=== PATIENT | female | born 1965 | race Two or more races ===

== ENCOUNTER 2019-12-08 08:47 | Inpatient (IN) ==
[2019-12-08 09:06] VITALS: BMI 34.2
[2019-12-08 09:36] LABS: ABG ALLEN TEST POS; ABG BASE EXCESS 1.3 mmol/L (-2.0-2.0); ABG HCO3 24.9 mmol/L (22-26)
--- NOTE | 2019-12-08 09:36 | DR.EXTPAIN ---
HPI Time seen Time Seen by Provider: 12/08/19 09:31 PCP Primary Care Physician: [place] HPI Comment HPI Comment: PATIENT IS 54YR OLS FEMALE IN ER WITH FEVER, COUGH, CONGESTION, SORE THROAT, BODYACHES TIMES FOUR DAYS. TEMP ELEVATED IN ER AND O2 SAT IS IN 80S IN ER. PATIENT IS WEAK AND NAUSEATED AND HAVE ABDOMINAL CRAMPING. NO DIARRHEA. SEEN IN [facility] IN [place] YESTERDAY. PAIN IS ACHING IN NATURE, 8/10 AND GENERALIZED. WORK IN [employer] THAT [employer]. NO HISTORY OF EXPOSURE TO COVID 19 PATIENT. Complaint/Symptoms Chief Complaint Doctor Comments: INCREASING SOB, COUGH, CONGESTION, SORE THROAT AND BODY ACHES TIMES FOUR DAY. Chief Complaint:: PT STATED SHE HAS BEEN SHORT OF BREATH , COUGHING, THROAT HURTS, AND BODY ACHES. HAS BEEN TO [place] [facility] BUT WAS SENT HOME AND SHE HAS NOT HAD A COVID TEST. COVID-19 Coronavirus risk:travel/contact w/high risk person: Yes Has patient experienced Coronavirus symptoms: Yes Coronavirus symptoms experienced: Fever, Coughing and Shortness of Breath Nurses notes reviewed Nurses Notes Review: Yes Source History Provided: Patient Mode of arrival Mode of Arrival: Ambulatory Timing Onset of Chief Complaint: 12/04/19 Context History of: None Associated signs and symptoms Associated Signs and Symptoms: Weakness, Fever, Abdominal Pain, Cough, Headache, Nausea, Pleuritic Chest Pain and Shortness of Breath PMH PMH Past Medical History: No Past Surgical History: Yes Surgical History: Family History History of Family Medical Conditions: No Social History Does patient currently use any type of tobacco product: No Have you used tobacco products in the last 12 months: No Type of Tobacco Use: None Does any household member use tobacco: No Alcohol Use: None Do you use any recreational Drugs:: No Lives With: Family Lives Where: Home Travel Risk Coronavirus risk:travel/contact w/high risk person: Yes Has patient experienced Coronavirus symptoms: Yes Coronavirus symptoms experienced: Fever, Coughing and Shortness of Breath Infectious screening In the last 2 months have you had wt loss of >10#?: NO Have you had fever, night sweats or hemotysis?: No Have you traveled outside the country in the last 6 months?: No Isolation: Droplet ROS Review of Systems Constitutional: See HPI, Chills, Fever, Malaise, Weakness, Fatigue and Loss of Appetite Eyes: No Symptoms Reported and See HPI; negative Blurred Vision and Diplopia ENTM: See HPI, Nose Discharge, Nose Congestion and Throat Pain; negative Ear Pain Respiratoy: See HPI, Moist Cough and Short of Breath; negative Wheezing Cardiovascular: See HPI and Chest Pain; negative Edema and Palpitations Gastrointestinal/Abdominal: Nausea; negative Abdominal Pain, Constipation, Diarrhea and Vomiting Genitourinary: No Symptoms Reported; negative Dysuria, Frequency and Hematuria Neurological: See HPI, Headache and Weakness; negative Dizziness Musculoskeletal: See HPI and Muscle Pain; negative Back Pain Integumentary: See HPI and Dryness; negative Change in Color, Rash and Juandice Hematologic/Lymphatic: No Symptoms Reported and See HPI; negative Easy Bruising and Swollen Glands Endocrine: See HPI and Decreased Appetite; negative Increased Thirst and Incr eased Urine Psychiatric: No Symptoms Reported and See HPI All Other Systems: Reviewed and Negative PE Vital Signs Vitals: Temperature 101.3 F Pulse Rate 90 Respiratory Rate 16 Blood Pressure 135/61 O2 Sat by Pulse Oximetry 85 General Limitations: No Limitations General Appearance: Alert and In Distress Head Head Exam: Normal Inspection and Atraumatic Eyes Eye exam: Normal Appearance and PERRL; negative Scleral Icterus and Conjunctival Injection ENT ENT Exam: Normal External Ear Exam; negative Normal Oropharynx and TM's Normal Bilaterally Neck Neck Exam: Normal Inspection and Trachea Midline; negative Tenderness and Lymphadenopathy Chest Chest Inspection: Normal Inspection and Symmetric Chest Wall Rise; negative Tenderness Respiratory Respiratory Exam: Respiratory Distress; negative Accessory Muscle Use and Chest Wall Tenderness Respiratory Exam: Bilateral: Rhonchi and Lower: Rhonchi Cardiovascular Cardiovascular Exam: Regular Rate, Normal Rhythm and Normal Heart Sounds; negative Systolic Murmur and Diastolic Murmur Abdominal Exam Abdominal Exam: Normal Inspection, Normal Bowel Sounds and Soft; negative Tenderness Extremities Extremities Exam: Normal Inspection and Normal Capillary Refill; negative Tenderness, Edema and Calf Tenderness Back Back Exam: Normal Inspection; negative (R) CVA Tenderness and (L) CVA Tenderness Neurological Neurological Exam: Alert, Oriented X3 and CN II-XII Intact; negative Motor Sensory Deficit Psychiatric Psychiatric Exam: Normal Affect and Normal Mood Skin Skin Exam: Dry MDM Differential Diagnosis Differential Diagnosis: Other (PNEUMONIA, HYPOXIA, GENERALIZED WEAKNESS, COVID 19 ILLNESS.) COURSE Treatment Treatment: SEE ORDERS. TYLENOL 1GM IVPB AND REEMDESIVIR 200MG IVBP IN ER. Consultation Consultation Comments: DISCUSSED PATIENT WITH DR. SÁNCHEZ. HE WILL ADMIT PATIENT. Education/Counseling Education/Counseling: Patient and Family Educated On: Diagnosis ROR Labs Reviewed Laboratory Results Reviewed?: Yes Result Diagrams: 12/08/19 09:24 12/08/19 09:24 Laboratory: WBC 8.2 X10^3/uL (3.6-10.0) 12/08/19 09:24 RBC 4.74 X10^6/uL (3.5-5.4) 12/08/19 09:24 Hgb 13.8 g/dL (12.0-16.0) 12/08/19 09:24 Hct 41.0 % (36.0-47.0) 12/08/19 09:24 MCV 86.6 fL (80.0-100.0) 12/08/19 09:24 MCH 29.1 pg (27.0-34.0) 12/08/19 09:24 MCHC 33.6 g/dL (33.0-35.0) 12/08/19 09:24 RDW 12.7 % (11.6-16.5) 12/08/19 09:24 Plt Count 242 X10^3/uL (150.0-450.0) 12/08/19 09:24 MPV 8.6 fL (7.4-11.0) 12/08/19 09:24 Neut % (Auto) 81.4 % (42.0-75.0) H 12/08/19 09:24 Lymph % (Auto) 14.3 % (21.0-51.0) L 12/08/19 09:24 [place] % (Auto) 4.1 % (0.0-13.0) 12/08/19 09:24 Eos % (Auto) 0.0 % (0.9-2.9) L 12/08/19 09:24 Baso % (Auto) 0.2 % (0.2-1.0) 12/08/19 09:24 Neut # (Auto) 6.6 x10^3/uL (2.2-4.8) H 12/08/19 09:24 Lymph # (Auto) 1.2 X10^3/uL (1.3-2.9) L 12/08/19 09:24 [place] # (Auto) 0.3 x10^3/uL (0.3-0.8) 12/08/19 09:24 Eos # (Auto) 0.0 x10^3/uL (0.0-0.2) 12/08/19 09:24 Baso # (Auto) 0.0 X10^3/uL (0.0-0.1) 12/08/19 09:24 Absolute Nucleated RBC 0.0 /100WBC 12/08/19 09:24 Sample Site Lr 12/08/19 09:25 ABG pH 7.460 (7.35-7.45) H 12/08/19 09:25 ABG pCO2 35.0 mmHg (35.0-45.0) 12/08/19 09:25 ABG pO2 49.0 mmHg (80.0-100.0) L* 12/08/19 09:25 ABG HCO3 24.9 mmol/L (22-26) 12/08/19 09:25 ABG O2 Saturation 87.0 % (90-100) L 12/08/19 09:25 ABG Base Excess 1.3 mmol/L (-2.0-2.0) 12/08/19 09:25 Mark Test Pos 12/08/19 09:25 A-a Gradient 57.0 mmHg 12/08/19 09:25 FiO2 21.0 12/08/19 09:25 Blood Gas Comments Pt ezekiel well cdn 12/08/19 09:25 Sodium 130 mmol/L (136-145) L 12/08/19 09:24 Corrected Sodium 136 mmol/L (136-145) 12/08/19 09:24 Potassium 3.6 mmol/L (3.5-5.1) 12/08/19 09:24 Chloride 96 mmol/L (98-107) L 12/08/19 09:24 Carbon Dioxide 26.4 mmol/L (21-32) 12/08/19 09:24 BUN 9 mg/dL (7-18) 12/08/19 09:24 Creatinine 0.76 mg/dL (0.55-1.02) 12/08/19 09:24 Est GFR (MDRD) Af Amer > 60 (>60) 12/08/19 09:24 Est GFR (MDRD) Non-Af > 60 (>60) 12/08/19 09:24 Glucose 335 mg/dL (65-99) H 12/08/19 09:24 Lactic Acid 1.3 mmol/L (0.4-2.0) 12/08/19 09:24 Calcium 9.2 mg/dL (8.5-10.1) 12/08/19 09:24 Corrected Calcium 9.9 mg/dL (8.5-10.1) 12/08/19 09:24 Ferritin 436 ng/mL (8-252) H 12/08/19 09:24 Total Bilirubin 0.40 mg/dL (0.2-1.0) 12/08/19 09:24 AST 30 Units/L (15-37) 12/08/19 09:24 ALT 59 Units/L (12-78) 12/08/19 09:24 Alkaline Phosphatase 96 Units/L (46-116) 12/08/19 09:24 Lactate Dehydrogenase 248 Units/L (81-234) H 12/08/19 09:24 Creatine Kinase 68 Units/L (26-192) 12/08/19 09:24 CK-MB (CK-2) < 1.0 ng/mL (0-4.0) 12/08/19 09:24 CK/CKMB % Calc 1.5 % (<4) 12/08/19 09:24 Troponin I < 0.02 ng/mL (0-1.5) 12/08/19 09:24 C-Reactive Protein 169.20 mg/L (0-3.0) H 12/08/19 09:24 Total Protein 8.1 g/dL (6.4-8.2) 12/08/19 09:24 Albumin 3.1 g/dL (3.4-5.0) L 12/08/19 09:24 Globulin 5.0 g/dL (2.5-4.5) H 12/08/19 09:24 Albumin/Globulin Ratio 0.6 Ratio (1.1-2.1) L 12/08/19 09:24 SARS-CoV-2 (PCR) Positive (NEGATIVE) A 12/08/19 11:15 XRAY XRAY Interpreted by: Radiologist (REPORT NOTED AND DISCUSSED WITH PATIENT.) and Self (AGREE WITH RADIOLOGIST.) EKG Rate: 81 [place]: Normal Rhythm: NSR Block: None Hypertrophy: None ST: Nonsp Opioid Opioid Risk Tool Age (Zaki box if 16-45): No History of Preadolescent Sexual Abuse: No Total: 0 Total Score Risk Category: Low Risk Copyright: Slim PERRY predicting aberrant behaviors Diagnosis Discharge Problem: Hypoxia, COVID-19 virus detected, Generalized weakness Pneumonia Qualifiers: Pneumonia type: due to unspecified organism Laterality: bilateral Lung location: lower lobe of lung Qualified Code(s): J18.9 - Pneumonia, unspecified organism Instructions Forms: Excuse From Work Precautions for COVID19 Patient Portal Social Distancing
[2019-12-08 09:45] LABS: BASOPHILS % (AUTO) 0.2 % (0.2-1.0); HEMOGLOBIN 13.8 g/dL (12.0-16.0); LYMPHOCYTES # (AUTO) 1.2 X10^3/uL (1.3-2.9); LYMPHOCYTES % (AUTO) 14.3 % (21.0-51.0); MEAN CORPUSCULAR HEMOGLOBIN 29.1 pg (27.0-34.0); MEAN CORPUSCULAR HGB CONC 33.6 g/dL (33.0-35.0); MEAN CORPUSCULAR VOLUME 86.6 fL (80.0-100.0); MEAN PLATELET VOLUME 8.6 fL (7.4-11.0); MONOCYTES # (AUTO) 0.3 x10^3/uL (0.3-0.8); MONOCYTES % (AUTO) 4.1 % (0.0-13.0); NEUTROPHILS # (AUTO) 6.6 x10^3/uL (2.2-4.8); NEUTROPHILS % (AUTO) 81.4 % (42.0-75.0); PLATELET COUNT 242 X10^3/uL (150.0-450.0); RED BLOOD COUNT 4.74 X10^6/uL (3.5-5.4); RED CELL DISTRIBUTION WIDTH 12.7 % (11.6-16.5); WHITE BLOOD COUNT 8.2 X10^3/uL (3.6-10.0)
[2019-12-08 10:02] LABS: BLOOD UREA NITROGEN 9 mg/dL (7-18); CALCIUM 9.2 mg/dL (8.5-10.1); CARBON DIOXIDE 26.4 mmol/L (21-32); CHLORIDE 96 mmol/L (98-107); COR NA(FOR HYPERGLY) 136 mmol/L (136-145); CREATININE 0.76 mg/dL (0.55-1.02); SODIUM 130 mmol/L (136-145); TROPONIN I < 0.02 ng/mL (0-1.5); eGFR NON BLACK RACES > 60 (>60)
[2019-12-08 10:06] LABS: ALANINE AMINOTRANSFERASE 59 Units/L (12-78); ALBUMIN 3.1 g/dL (3.4-5.0); ALKALINE PHOSPHATASE 96 Units/L (46-116); ASPARTATE AMINO TRANSFERASE 30 Units/L (15-37); CKMB % 1.5 % (<4); COR CA(FOR HYPOALB) 9.9 mg/dL (8.5-10.1); CREATINE KINASE 68 Units/L (26-192); CREATINE KINASE MB < 1.0 ng/mL (0-4.0); TOTAL PROTEIN 8.1 g/dL (6.4-8.2)
[2019-12-08 10:08] LABS: LACTIC ACID 1.3 mmol/L (0.4-2.0)
--- NOTE | 2019-12-08 10:26 | RAD ---
HISTORY:Shortness of breath, cough, sore throat, body achesStudy: Single view chestComparison:NoneFindings:Lung volumes are reduced limiting evaluation. There are bibasilar multifocal lung infiltrates compatible with pneumonia. No pneumothorax or pleural effusion identified. Heart size is normal.IMPRESSION:Bibasilar lung infiltrates compatible with pneumonia.Electronically signed by: SIMA BENTON (Dec 08, 2019 10:25:08)
[2019-12-08] MEDS ORDERED: OFIRMEV IV 1000 MG VIAL 1,000 MG/100 ML VIAL IV ONE ×2 (10:48→11:06)
[2019-12-08] MEDS ORDERED: [UNRECOGNIZED DRUG - REMARK] IV ONE (12:38)
[2019-12-08] MEDS ORDERED: ASCORBIC ACID INJ MULTI-DOSE VIAL IM SCH (12:45)
[2019-12-08 14:23] LABS: SERUM ACETONE NEGATIVE (NEGATIVE)
[2019-12-08 14:34] LABS: HEMOGLOBIN A1C 12.6 %
[2019-12-08] MEDS ORDERED: NS 100 ML IV 100 ML with ASCORBIC ACID INJ MULTI-DOSE VIAL 1,500 MG IV SCH ×2 (15:00)
[2019-12-08] MEDS ORDERED: CORTEF ONE (15:14)
[2019-12-08] MEDS ORDERED: TUSSIONEX PENNKINETIC SUSP PO PRN (15:15)
[2019-12-08] MEDS: CORTEF PO SCH ×2 (15:16→16:11)
[2019-12-08] MEDS ORDERED: NS 1/2 1000 ML IV 1,000 ML IV ONE ×2 (15:19→20:37)
[2019-12-08] MEDS ORDERED: ROBITUSSIN DM ONE (15:19)
[2019-12-08] MEDS ORDERED: LEVAQUIN PREMIX IV 750 MG 750 MG/150 ML BAG IV ONE (15:21)
[2019-12-08] MEDS: NS 1/2 1000 ML IV 1,000 ML IV SCH (15:24)
[2019-12-08] MEDS: ROBITUSSIN DM PO SCH ×3 (15:24→21:08)
[2019-12-08] MEDS ORDERED: DUONEB 0.5 MG/3 MG (3 mL) NEB ONE (15:49)
[2019-12-08] MEDS: DUONEB 0.5 MG/3 MG (3 mL) NEB SCH ×2 (16:20→18:44)
[2019-12-08] MEDS ORDERED: HumuLIN R ONE (16:36)
[2019-12-08] MEDS: HumuLIN R SUBCUT PRN ×2 (16:38→20:51)
[2019-12-08] MEDS: LEVAQUIN PREMIX IV 750 MG 750 MG/150 ML BAG IV SCH (16:38)
[2019-12-08] MEDS ORDERED: KLOR-CON PO PRN (17:07)
[2019-12-08] MEDS ORDERED: K-RIDER 10 MEQ/NS 100 ML 10 MEQ/100 ML BAG IV PRN (17:07)
[2019-12-08] MEDS ORDERED: MICRO K EXTEN CAP 10 MEQ PO PRN (17:07)
[2019-12-08] MEDS ORDERED: POTASSIUM CHL 60 MEQ/NS 0.45% 500 ML IV PRN (17:07)
[2019-12-08] MEDS ORDERED: POTASSIUM CHLORIDE LIQ 20 MEQ UDC PO PRN (17:07)
[2019-12-08] MEDS ORDERED: POTASSIUM CHL 40 MEQ/NS 0.45% 500 ML IV PRN (17:07)
[2019-12-08] MEDS ORDERED: K-DUR TAB 20 MEQ PO ONE (17:13)
[2019-12-08] MEDS: K-DUR TAB 20 MEQ PO PRN (17:31)
[2019-12-08] MEDS ORDERED: ACTEMRA IV ONE (18:00)
[2019-12-08] MEDS ORDERED: NS IV ONE (18:00)
[2019-12-08] MEDS ORDERED: PULMICORT NEB TX 0.5 MG NEB ONE (19:37)
[2019-12-08] MEDS: PULMICORT NEB TX 0.5 MG NEB SCH (20:30)
[2019-12-08] MEDS ORDERED: THIAMINE HCL INJ IM SCH (21:00)
[2019-12-08] MEDS ORDERED: ZINC SULFATE PO SCH (21:00)
[2019-12-08 21:13] LABS: ABG ALLEN TEST POS; ABG BASE EXCESS 2.8 mmol/L (-2.0-2.0); ABG HCO3 27.2 mmol/L (22-26)
[2019-12-09] MEDS: DUONEB 0.5 MG/3 MG (3 mL) NEB SCH ×4 (00:40→18:00)
[2019-12-09] MEDS: NS 1/2 1000 ML IV 1,000 ML IV SCH ×2 (04:56→19:57)
[2019-12-09 05:41] LABS: BASOPHILS % (AUTO) 0.2 % (0.2-1.0); EOSINOPHILS % (AUTO) 0.1 % (0.9-2.9); HEMATOCRIT 36.6 % (36.0-47.0); HEMOGLOBIN 12.4 g/dL (12.0-16.0); LYMPHOCYTES % (AUTO) 30.9 % (21.0-51.0); MEAN CORPUSCULAR HEMOGLOBIN 29.3 pg (27.0-34.0); MEAN CORPUSCULAR HGB CONC 33.8 g/dL (33.0-35.0); MEAN CORPUSCULAR VOLUME 86.7 fL (80.0-100.0); MONOCYTES # (AUTO) 0.5 x10^3/uL (0.3-0.8); MONOCYTES % (AUTO) 7.4 % (0.0-13.0); NEUTROPHILS # (AUTO) 4.1 x10^3/uL (2.2-4.8); NEUTROPHILS % (AUTO) 61.4 % (42.0-75.0); PLATELET COUNT 246 X10^3/uL (150.0-450.0); RED BLOOD COUNT 4.22 X10^6/uL (3.5-5.4); RED CELL DISTRIBUTION WIDTH 12.5 % (11.6-16.5); WHITE BLOOD COUNT 6.6 X10^3/uL (3.6-10.0)
[2019-12-09 06:00] LABS: ALANINE AMINOTRANSFERASE 42 Units/L (12-78); ALBUMIN 2.5 g/dL (3.4-5.0); ALKALINE PHOSPHATASE 80 Units/L (46-116); ASPARTATE AMINO TRANSFERASE 23 Units/L (15-37); BLOOD UREA NITROGEN 7 mg/dL (7-18); CALCIUM 8.6 mg/dL (8.5-10.1); CARBON DIOXIDE 25.2 mmol/L (21-32); CHLORIDE 102 mmol/L (98-107); COR CA(FOR HYPOALB) 9.8 mg/dL (8.5-10.1); COR NA(FOR HYPERGLY) 136 mmol/L (136-145); CREATININE 0.54 mg/dL (0.55-1.02); SODIUM 135 mmol/L (136-145); TOTAL PROTEIN 6.8 g/dL (6.4-8.2); eGFR NON BLACK RACES > 60 (>60)
[2019-12-09 07:14] LABS: ABG ALLEN TEST POS; ABG HCO3 27.1 mmol/L (22-26)
--- NOTE | 2019-12-09 08:09 | RAD ---
HISTORYSHORT OF BREATH, COUGHING,STUDYCHEST, 1 VIEWCOMPARISONChest film December 08, 2019FINDINGSThe trachea is midline. The cardiac silhouette is unremarkable. Lung volumes are low but there are patchy bilateral airspace opacities left greater than right lower lung field without change from yesterday's exam. Findings are consistent with pneumonia. The bony thorax is unremarkable.IMPRESSIONLow lung volumes and stable left greater than right bibasilar infiltrates consistent with pneumonia. There is no pneumothorax or effusion.Electronically signed by: NUNU SAGE (Dec 09, 2019 08:08:03)
[2019-12-09] MEDS ORDERED: ACTEMRA 400 MG in NS 100 ML IV 80 ML IV NR (08:15)
[2019-12-09] MEDS ORDERED: VITAMIN A PO SCH (09:00)
[2019-12-09] MEDS ORDERED: DECADRON INJ IV SCH (09:00)
[2019-12-09] MEDS ORDERED: VITAMIN D (1.25MG) PO SCH (09:00)
[2019-12-09] MEDS ORDERED: VITAMIN D3 125 mcg (5,000 UNITS) PO SCH (09:00)
[2019-12-09] MEDS: REMDESIVIR **DO NOT USE THIS ITEM# ** 100 MG in NS 250 ML IV 250 ML IV SCH (09:24)
[2019-12-09] MEDS: VSL#3 PO SCH (09:24)
[2019-12-09] MEDS: LEVAQUIN PREMIX IV 750 MG 750 MG/150 ML BAG IV SCH (09:24)
[2019-12-09] MEDS: PULMICORT NEB TX 0.5 MG NEB SCH ×2 (09:50→21:23)
--- NOTE | 2019-12-09 10:58 | DR.H&P ---
H&P - History & Physical for Day of: H&P Date: 12/08/19 - Chief Complaint Chief Complaint: FEVER, COUGH, CONGESTION, SORE THROAT, BODY ACHES X 4 DAYS - History of Present Illness History of Present Illness: IS A 54 YEAR OLD FEMALE WHO PRESENTED TO THE ER WITH COMPLAINTS OF FEVER, COUGH, CONGESTION, SORE THROAT, BODY ACHES X 4 DAYS. SHE REPORTS SHE WAS SEEN AT [facility] ONE DAY PRIOR AND WAS SENT HOME. AUSCULTATION OF LUNG BUI REVEALED SCATTERED WHEEZING. ON ARRIVAL TO THE ER, VITALS WERE 101.3-90-16-85%-135/61. LABS WERE OBTAINED. ABNORMAL LAB VALUES INCLUDE THE FOLLOWING: SODIUM 130, CHLORIDE 96, GLUCOSE 335, FERRITIN 436, ALBUMIN 3.1, LACTATE DEHYDROGENASE 248, CRP 169.20. CARDIAC ENZYMES WERE WITHIN NORMAL LIMITS. ACETONE NEGATIVE. COVID-19 POSITIVE. AN ABG WAS OBTAINED AND REVEALED: PH 7.460, PC02 35.0, P02 49, HC03 24.9, 02 SATURATION 87.0, BASE EXCESS 1.3, FI02 21.0. BLOOD CULTURES WERE SET UP. A CHEST XRAY WAS OBTAINED AND REVEALED: BIBASILAR LUNG INFILTRATES COMPATIBLE WITH PNEUMONIA. EKG REVEALED: SINUS RHYTHM WITH HR 81. SHE WAS GIVEN TYLENOL 1000MG IV IN THE ER. TEMPERATURE DECREASED TO 99.3. AFTER BEING PLACED ON THE VENTI- MASK, OXYGEN SATURATIONS INCREASED TO 91%. SHE WAS ADMITTED FOR FURTHER EVALUATION AND TREATMENT OF PNEUMONIA, HYPOXIA, COVID-19, GENERALIZED WEAKNESS. SHE WAS STARTED ON 1/2NS AT 75 ML/HR, REMDESIVIR 200MG IV X 1, THEN 100MG IV DAILY, ACTEMRA 400MG IV X 1 DOSE, LEVAQUIN 750MG IV DAILY, DUONEBS Q6H, PULMICORT BID, ROBITUSSIN 10ML PO QID, TUSSIONEX 5ML PO Q12H PRN COUGH, SOLU- MEDROL 40MG IV Q8H, AND THE POTASSIUM AND MAGNESIUM PROTOCOLS. OTHERWISE, WE PLAN TO FOLLOW UP WITH AM LABS, ABG, AND CHEST XRAY AND CONTINUE TO MONITOR. - Past Medical History Past Medical History: Diabetes - Past Surgical History Surgical History: - Social History Does patient currently use any type of tobacco product: No Have you used tobacco products in the last 12 months: No Type of Tobacco Use: None Does any household member use tobacco: No Alcohol Use: None Drug Use: None - Medications Home Medications: No Known Drug Allergies Allergy (Verified 12/08/19 08:59) CONTINUE taking the following medications benzonatate 100 mg PO TID 12/08/19 [History] levofloxacin [Levaquin] 750 mg PO DAILY 12/08/19 [History] - Review of Systems Constitutional: Fever, Chills, Weakness, Malaise Eyes: No Symptoms Reported ENT: Throat Pain Respiratory: See HPI, Cough, Shortness of Breath, SOB with Excertion, Wheezing Cardiovascular: No Symptoms Reported Gastrointestinal: No Symptoms Reported Genitourinary: No Symptoms Reported Musculoskeletal: No Symptoms Reported Skin: No Symptoms Reported Neurological: Weakness - Physical Exam Vital Signs: Temperature 98.0 F Pulse Rate [Apical] 74 Pulse Rate 77 Respiratory Rate 30 Blood Pressure [Left Arm] 127/65 Blood Pressure 135/61 O2 Sat by Pulse Oximetry 93 Oriented: Normal Eyes: Normal Ear: Normal Nose: Normal Throat: Normal Respiratory: Wheezes Throughout Cardiovascular: Normal : Normal Auscultation: Bowel Sounds: Normal Palpation: Normal Tenderness: Normal Skin: Normal Musculoskeletal: Normal Psychiatric: Normal Mood Description: Calm Affect: Normal Speech Pattern: Clear - Assessment/Plan (1) COVID-19 virus detected Status: Acute Plan: 1/2NS AT 75 ML/HR, REMDESIVIR 200MG IV X 1, THEN 100MG IV DAILY, ACTEMRA 400MG IV X 1 DOSE, LEVAQUIN 750MG IV DAILY, DUONEBS Q6H, PULMICORT BID, ROBITUSSIN 10ML PO QID, TUSSIONEX 5ML PO Q12H PRN COUGH, SOLU-MEDROL 40MG IV Q8H, AND THE POTASSIUM AND MAGNESIUM PROTOCOLS. (2) Pneumonia Qualifiers: Pneumonia type: due to unspecified organism Laterality: bilateral Lung location: lower lobe of lung Qualified Code(s): J18.9 - Pneumonia, unspecified organism Status: Acute (3) Hypoxia Status: Acute (4) Generalized weakness Status: Acute (5) Diabetes Qualifiers: Diabetes mellitus type: type 2 Diabetes mellitus mcc insulin use: without mcc use Diabetes mellitus complication status: without complication Qualified Code(s): E11.9 - Type 2 diabetes mellitus without complications Status: Chronic - Review H&P Reviewed: Yes Patient was examined?: Yes - Allergies Allergies/Adverse Reactions: Allergies Allergy/AdvReac Type Severity Reaction Status Date / Time No Known Drug Allergies Allergy Verified 12/08/19 08:59
[2019-12-09] MEDS: ROBITUSSIN DM PO SCH ×4 (11:28→21:40)
[2019-12-09] MEDS: SOLU-Medrol 40 MG VIAL IVP SCH ×3 (11:28→21:41)
[2019-12-09] MEDS: HumuLIN R SUBCUT PRN ×4 (12:16→22:09)
[2019-12-09] MEDS: LOVENOX INJ 40 MG SYR SC SCH (12:18)
[2019-12-09] MEDS: K-DUR TAB 20 MEQ PO PRN (17:21)
[2019-12-09] MEDS ORDERED: NS 1/2 1000 ML IV 1,000 ML IV ONE (20:24)
[2019-12-10] MEDS: DUONEB 0.5 MG/3 MG (3 mL) NEB SCH ×4 (00:44→17:30)
[2019-12-10] MEDS: NS 1/2 1000 ML IV 1,000 ML IV SCH ×3 (04:00→12:53)
[2019-12-10 05:19] LABS: BASOPHILS % (AUTO) 0.1 % (0.2-1.0); HEMATOCRIT 38.5 % (36.0-47.0); LYMPHOCYTES % (AUTO) 18.5 % (21.0-51.0); MEAN CORPUSCULAR HEMOGLOBIN 29.3 pg (27.0-34.0); MEAN CORPUSCULAR HGB CONC 33.7 g/dL (33.0-35.0); MEAN CORPUSCULAR VOLUME 86.8 fL (80.0-100.0); MEAN PLATELET VOLUME 8.8 fL (7.4-11.0); MONOCYTES # (AUTO) 0.2 x10^3/uL (0.3-0.8); NEUTROPHILS # (AUTO) 4.4 x10^3/uL (2.2-4.8); NEUTROPHILS % (AUTO) 77.4 % (42.0-75.0); PLATELET COUNT 312 X10^3/uL (150.0-450.0); RED BLOOD COUNT 4.43 X10^6/uL (3.5-5.4); WHITE BLOOD COUNT 5.7 X10^3/uL (3.6-10.0)
[2019-12-10 05:31] LABS: ALANINE AMINOTRANSFERASE 47 Units/L (12-78); ALBUMIN 2.7 g/dL (3.4-5.0); ALKALINE PHOSPHATASE 92 Units/L (46-116); ASPARTATE AMINO TRANSFERASE 25 Units/L (15-37); BLOOD UREA NITROGEN 12 mg/dL (7-18); CALCIUM 9.4 mg/dL (8.5-10.1); CARBON DIOXIDE 22.8 mmol/L (21-32); CHLORIDE 103 mmol/L (98-107); COR CA(FOR HYPOALB) 10.4 mg/dL (8.5-10.1); COR NA(FOR HYPERGLY) 143 mmol/L (136-145); CREATININE 0.65 mg/dL (0.55-1.02); SODIUM 138 mmol/L (136-145); TOTAL PROTEIN 7.4 g/dL (6.4-8.2); eGFR NON BLACK RACES > 60 (>60)
[2019-12-10 05:58] LABS: ABG ALLEN TEST POS; ABG BASE EXCESS 1.2 mmol/L (-2.0-2.0)
--- NOTE | 2019-12-10 06:02 | RAD ---
HISTORYShortness of breathSTUDYChest AP [id number]/2020FINDINGSHeart size is accentuated by hypo inflation. The heart is likely upper limits normal in size. No congestive heart failure is noted. Left perihilar and right basilar i nfiltrates and right basilar subsegmental atelectasis unchanged. No pleural effusions are identified. The right hemidiaphragm is elevated bony thorax is unremarkable.IMPRESSIONNo change bilateral infilt rates and right basilar subsegmental atelectasisElectronically signed by: CHU OCHOA (Dec 10, 2019 06:00:58)
[2019-12-10] MEDS: SOLU-Medrol 40 MG VIAL IVP SCH ×3 (06:37→22:00)
[2019-12-10] MEDS: HumuLIN R SUBCUT PRN ×3 (06:38→16:27)
[2019-12-10] MEDS: LEVAQUIN PREMIX IV 750 MG 750 MG/150 ML BAG IV SCH (08:15)
[2019-12-10] MEDS ORDERED: VITAMIN A PO SCH (09:00)
[2019-12-10] MEDS: PULMICORT NEB TX 0.5 MG NEB SCH ×2 (09:35→20:48)
[2019-12-10] MEDS: LOVENOX INJ 40 MG SYR SC SCH (09:42)
[2019-12-10] MEDS: REMDESIVIR **DO NOT USE THIS ITEM# ** 100 MG in NS 250 ML IV 250 ML IV SCH (09:42)
[2019-12-10] MEDS: ROBITUSSIN DM PO SCH ×3 (09:42→21:00)
[2019-12-10] MEDS: VSL#3 PO SCH (09:43)
--- NOTE | 2019-12-10 10:23 | PCM.PROG ---
Progress Note - Progress Note for Day of Date of Exam: 12/10/19 - Subjective Subjective: IS BEING TREATED FOR COVID-19, PNEUMONIA, HYPOXIA, GENERALIZED WEAKNESS, AND DIABETES. TODAY, SHE IS ALERT AND ORIENTED, LYING IN [place] N MORNING ROUNDS. SHE CONTINUE WITH COMPLAINTS OF COUGH, BODY ACHES, SORE THROAT, WEAKNESS, AND SHORTNESS OF BREATH TODAY. ON EXAMINATION, HEART IS R EGULAR IN RATE AND RHYTHM. BILATERAL LUNGS CONTINUE WITH SCATTERED WHEEZING THROUGHOUT. ABDOMEN IS ROUND, SOFT, AND NON-TENDER WITH NORMAL BOWEL SOUNDS NOTED IN ALL QUADRANTS. HER VITALS THIS MORNING ARE: 98.1-76-33-97%HEATED HIGH FLOW-133/71. LABS WERE OBTAINED. ABNORMAL LAB VALUES INCLUDE THE FOLLOWING: GLUCOSE 320, CALCIUM 10.4, FERRITIN 434, CRP 105.10, ALBUMIN 2.7. ABG REVEALED: PH 7.450, PC02 36.0, P02 52.0, HC03 25.0, 02 SATURATION 88.0, BASE EXCESS 1.2, FI02 59.0. BLOOD CULTURES WERE SET UP. CHEST XRAY REVEALED: No change bilateral infiltrates and right basilar subsegmental atelectasis. SHE IS CURRENTLY RECEIVING 1/2NS AT 75 ML/HR, REMDESIVIR 100MG IV DAILY, LEVAQUIN 750MG IV DAILY, DUONEBS Q6H, PULMICORT BID, ROBITUSSIN 10ML PO QID, TUSSIONEX 5ML PO Q12H PRN COUGH, SOLU-MEDROL 40MG IV Q8H, AND THE POTASSIUM AND MAGNESIUM PROTOCOLS. WE WILL CONTINUE WITH CURRENT PLAN OF CARE TODAY. OTHERWISE, WE WILL FOLLOW UP WITH AM LABS AND CONTINUE TO MONITOR. - Past Medical Family Social History Past Med/Fam/Surg Hx: No changes since H&P Allergies: Allergies No Known Drug Allergies Allergy (Verified 12/08/19 08:59) - Review of Systems ROS: No change since H&P - Vital Signs and I&O's Vital Signs: Temperature 98.1 F Pulse Rate [Apical] 74 Pulse Rate 80 Respiratory Rate 31 Blood Pressure [Left Arm] 127/65 Blood Pressure 129/59 O2 Sat by Pulse Oximetry 93 Intake and Output: Intake & Output 12/07/19 12/08/19 12/09/19 12/10/19 11:59 11:59 11:59 11:59 Intake Total 2171 / 2171 3325 / 3325 Output Total 3150 / 3150 Balance 2170 / 2170 175 / 175 - Physical Exam Oriented: Normal Eyes: Normal Ear: Normal Nose: Normal Throat: Normal Respiratory: Diminished, Wheezes Cardiovascular: Normal : Normal Auscultation: Bowel Sounds: Normal Palpation: Normal Tenderness: Normal Skin: Normal Musculoskeletal: Normal Psychiatric: Normal Mood Description: Calm Affect: Normal Speech Pattern: Clear - Laboratory and Diagnostics Result Diagrams: 12/10/19 04:53 12/10/19 04:53 Labs: 12/08/19 09:50 Blood Blood Culture - Preliminary 12/08/19 09:24 Blood Blood Culture - Preliminary Laboratory WBC 5.7 X10^3/uL (3.6-10.0) 12/10/19 04:53 RBC 4.43 X10^6/uL (3.5-5.4) 12/10/19 04:53 Hgb 13.0 g/dL (12.0-16.0) 12/10/19 04:53 Hct 38.5 % (36.0-47.0) 12/10/19 04:53 MCV 86.8 fL (80.0-100.0) 12/10/19 04:53 MCH 29.3 pg (27.0-34.0) 12/10/19 04:53 MCHC 33.7 g/dL (33.0-35.0) 12/10/19 04:53 RDW 13.0 % (11.6-16.5) 12/10/19 04:53 Plt Count 312 X10^3/uL (150.0-450.0) 12/10/19 04:53 MPV 8.8 fL (7.4-11.0) 12/10/19 04:53 Neut % (Auto) 77.4 % (42.0-75.0) H 12/10/19 04:53 Lymph % (Auto) 18.5 % (21.0-51.0) L 12/10/19 04:53 [place] % (Auto) 4.0 % (0.0-13.0) 12/10/19 04:53 Eos % (Auto) 0.0 % (0.9-2.9) L 12/10/19 04:53 Baso % (Auto) 0.1 % (0.2-1.0) L 12/10/19 04:53 Neut # (Auto) 4.4 x10^3/uL (2.2-4.8) 12/10/19 04:53 Lymph # (Auto) 1.0 X10^3/uL (1.3-2.9) L 12/10/19 04:53 [place] # (Auto) 0.2 x10^3/uL (0.3-0.8) L 12/10/19 04:53 Eos # (Auto) 0.0 x10^3/uL (0.0-0.2) 12/10/19 04:53 Baso # (Auto) 0.0 X10^3/uL (0.0-0.1) 12/10/19 04:53 Absolute Nucleated RBC 0.0 /100WBC 12/10/19 04:53 Sample Site Lr 12/10/19 05:00 ABG pH 7.450 (7.35-7.45) 12/10/19 05:00 ABG pCO2 36.0 mmHg (35.0-45.0) 12/10/19 05:00 ABG pO2 52.0 mmHg (80.0-100.0) L 12/10/19 05:00 ABG HCO3 25.0 mmol/L (22-26) 12/10/19 05:00 ABG O2 Saturation 88.0 % (90-100) L 12/10/19 05:00 ABG Base Excess 1.2 mmol/L (-2.0-2.0) 12/10/19 05:00 Mark Test Pos 12/10/19 05:00 A-a Gradient 324.0 mmHg 12/10/19 05:00 FiO2 59.0 12/10/19 05:00 Blood Gas Comments Kirsty well ae 12/10/19 05:00 Sodium 138 mmol/L (136-145) 12/10/19 04:53 Corrected Sodium 143 mmol/L (136-145) 12/10/19 04:53 Potassium 4.1 mmol/L (3.5-5.1) 12/10/19 04:53 Chloride 103 mmol/L (98-107) 12/10/19 04:53 Carbon Dioxide 22.8 mmol/L (21-32) 12/10/19 04:53 BUN 12 mg/dL (7-18) 12/10/19 04:53 Creatinine 0.65 mg/dL (0.55-1.02) 12/10/19 04:53 Est GFR (MDRD) Af Amer > 60 (>60) 12/10/19 04:53 Est GFR (MDRD) Non-Af > 60 (>60) 12/10/19 04:53 Glucose 320 mg/dL (65-99) H 12/10/19 04:53 Hemoglobin A1c 12.6 % 12/08/19 09:24 Lactic Acid 1.3 mmol/L (0.4-2.0) 12/08/19 09:24 Calcium 9.4 mg/dL (8.5-10.1) 12/10/19 04:53 Corrected Calcium 10.4 mg/dL (8.5-10.1) H 12/10/19 04:53 Magnesium 1.5 mg/dL (1.7-2.9) L 12/09/19 19:45 Ferritin 434 ng/mL (8-252) H 12/10/19 04:53 Total Bilirubin 0.30 mg/dL (0.2-1.0) 12/10/19 04:53 AST 25 Units/L (15-37) 12/10/19 04:53 ALT 47 Units/L (12-78) 12/10/19 04:53 Alkaline Phosphatase 92 Units/L (46-116) 12/10/19 04:53 Lactate Dehydrogenase 248 Units/L (81-234) H 12/08/19 09:24 Creatine Kinase 68 Units/L (26-192) 12/08/19 09:24 CK-MB (CK-2) < 1.0 ng/mL (0-4.0) 12/08/19 09:24 CK/CKMB % Calc 1.5 % (<4) 12/08/19 09:24 Troponin I < 0.02 ng/mL (0-1.5) 12/08/19 09:24 C-Reactive Protein 105.10 mg/L (0-3.0) H 12/10/19 04:53 Total Protein 7.4 g/dL (6.4-8.2) 12/10/19 04:53 Albumin 2.7 g/dL (3.4-5.0) L 12/10/19 04:53 Globulin 4.7 g/dL (2.5-4.5) H 12/10/19 04:53 Albumin/Globulin Ratio 0.6 Ratio (1.1-2.1) L 12/10/19 04:53 Acetone, Semi-Quant Negative (NEGATIVE) 12/08/19 09:24 SARS-CoV-2 (PCR) Positive (NEGATIVE) A 12/08/19 11:15 - Plan (1) COVID-19 virus detected Status: Acute Plan: 1/2NS AT 75 ML/HR, REMDESIVIR 100MG IV DAILY, LEVAQUIN 750MG IV DAILY, DUONEBS Q6H, PULMICORT BID, ROBITUSSIN 10ML PO QID, TUSSIONEX 5ML PO Q12H PRN COUGH, SOLU-MEDROL 40MG IV Q8H, AND THE POTASSIUM AND MAGNESIUM PROTOCOLS. (2) Pneumonia Status: Acute Qualifiers: Pneumonia type: due to unspecified organism Laterality: bilateral Lung location: lower lobe of lung Qualified Code(s): J18.9 - Pneumonia, unspecified organism (3) Hypoxia Status: Acute (4) Generalized weakness Status: Acute (5) Diabetes Status: Chronic Qualifiers: Diabetes mellitus type: type 2 Diabetes mellitus long term care social worker insulin use: without long term care social worker use Diabetes mellitus complication status: without complication Qualified Code(s): E11.9 - Type 2 diabetes mellitus without complications
[2019-12-10] MEDS ORDERED: NS 1/2 1000 ML IV 1,000 ML IV ONE ×2 (12:44→20:42)
[2019-12-11] MEDS: DUONEB 0.5 MG/3 MG (3 mL) NEB SCH ×4 (00:45→17:15)
[2019-12-11] MEDS: NS 1/2 1000 ML IV 1,000 ML IV SCH ×3 (01:00→18:29)
[2019-12-11] MEDS: HumuLIN R SUBCUT PRN ×6 (01:03→22:55)
[2019-12-11 05:09] LABS: ABG BASE EXCESS 2.2 mmol/L (-2.0-2.0); ABG HCO3 26.5 mmol/L (22-26)
[2019-12-11 05:18] LABS: BASOPHILS % (AUTO) 0.2 % (0.2-1.0); HEMATOCRIT 36.6 % (36.0-47.0); HEMOGLOBIN 12.3 g/dL (12.0-16.0); LYMPHOCYTES # (AUTO) 1.4 X10^3/uL (1.3-2.9); LYMPHOCYTES % (AUTO) 12.1 % (21.0-51.0); MEAN CORPUSCULAR HEMOGLOBIN 28.9 pg (27.0-34.0); MEAN CORPUSCULAR HGB CONC 33.6 g/dL (33.0-35.0); MEAN PLATELET VOLUME 8.2 fL (7.4-11.0); MONOCYTES # (AUTO) 0.3 x10^3/uL (0.3-0.8); MONOCYTES % (AUTO) 2.8 % (0.0-13.0); NEUTROPHILS # (AUTO) 9.5 x10^3/uL (2.2-4.8); NEUTROPHILS % (AUTO) 84.9 % (42.0-75.0); PLATELET COUNT 348 X10^3/uL (150.0-450.0); RED BLOOD COUNT 4.25 X10^6/uL (3.5-5.4); RED CELL DISTRIBUTION WIDTH 12.7 % (11.6-16.5); WHITE BLOOD COUNT 11.2 X10^3/uL (3.6-10.0)
[2019-12-11 05:27] LABS: ALANINE AMINOTRANSFERASE 38 Units/L (12-78); ALBUMIN 2.6 g/dL (3.4-5.0); ALKALINE PHOSPHATASE 93 Units/L (46-116); ASPARTATE AMINO TRANSFERASE 15 Units/L (15-37); BLOOD UREA NITROGEN 14 mg/dL (7-18); CALCIUM 8.8 mg/dL (8.5-10.1); CARBON DIOXIDE 25.3 mmol/L (21-32); CHLORIDE 104 mmol/L (98-107); COR CA(FOR HYPOALB) 9.9 mg/dL (8.5-10.1); COR NA(FOR HYPERGLY) 143 mmol/L (136-145); CREATININE 0.64 mg/dL (0.55-1.02); SODIUM 138 mmol/L (136-145); TOTAL PROTEIN 6.7 g/dL (6.4-8.2); eGFR NON BLACK RACES > 60 (>60)
--- NOTE | 2019-12-11 06:17 | RAD ---
HISTORYShortness of breathSTUDYChest AP [id number]/2020FINDINGSHeart size is accentuated by hypo inflation. It is likely upper l imits normal in size. No congestive heart failure is noted. Bilateral lung infiltrates have improved when compared to the prior examination. No pleural effusions are new infiltrates are identified. Bony thorax is unremarkable.IMPRESSIONImproving bilateral infiltratesElectronically signed by: CHU BEAR (Dec 11, 2019 06:15:48)
[2019-12-11] MEDS: SOLU-Medrol 40 MG VIAL IVP SCH ×3 (06:31→21:41)
[2019-12-11] MEDS: LEVAQUIN PREMIX IV 750 MG 750 MG/150 ML BAG IV SCH (08:21)
[2019-12-11] MEDS: LOVENOX INJ 40 MG SYR SC SCH (08:37)
[2019-12-11] MEDS: ROBITUSSIN DM PO SCH ×5 (08:37→21:41)
[2019-12-11] MEDS: VSL#3 PO SCH (08:38)
[2019-12-11] MEDS: PULMICORT NEB TX 0.5 MG NEB SCH ×2 (08:50→20:57)
[2019-12-11] MEDS: REMDESIVIR **DO NOT USE THIS ITEM# ** 100 MG in NS 250 ML IV 250 ML IV SCH (09:30)
--- NOTE | 2019-12-11 11:20 | PCM.PROG ---
Progress Note - Progress Note for Day of Date of Exam: 12/11/19 - Subjective Subjective: IS BEING TREATED FOR COVID-19, PNEUMONIA, HYPOXIA, GENERALIZED WEAKNESS, AND DIABETES. TODAY, SHE IS ALERT AND ORIENTED, LYING IN BEDO N MORNING ROUNDS. SHE CONTINUE WITH COMPLAINTS OF COUGH, BODY ACHES, SORE THROAT, WEAKNESS, AND SHORTNESS OF BREATH TODAY, BUT REPORTS SLIGHT IMPROVEMENT IN SYMPTOMS TODAY. ON EXAMINATION, HEART IS REGULAR IN RATE AND RHYTHM. BILATERAL LUNGS CONTINUE WITH SCATTERED WHEEZING THROUGHOUT. ABDOMEN IS ROUND, SOFT, AND NON-TENDER WITH NORMAL BOWEL SOUNDS NOTED IN ALL QUADRANTS. HER VITALS THIS MORNING ARE: 98.3-62-24-91%HHF-129/62. LABS WERE OBTAINED. ABNORMAL LAB VALUES INCLUDE THE FOLLOWING: WBC 11.2, GLUCOSE 328, FERRITIN 384, CRP 53.80, ALBUMIN 2.6. ABG REVEALED: PH 7.440, PC02 39.0, P02 59.0, HC03 26.5, 02 SATURATION 91.0, BASE EXCESS 2.2. BLOOD CULTURES ARE PENDING. CHEST XRAY REVEALED: IMPROVING BILATERAL INFILTRATES. SHE IS CURRENTLY RECEIVING 1/2NS AT 75 ML/HR, REMDESIVIR 100MG IV DAILY, LEVAQUIN 750MG IV DAILY, DUONEBS Q6H, PULMICORT BID, ROBITUSSIN 10ML PO QID, TUSSIONEX 5ML PO Q12H PRN COUGH, SOLU- MEDROL 40MG IV Q8H, AND THE POTASSIUM AND MAGNESIUM PROTOCOLS. WE WILL CONTINUE WITH CURRENT PLAN OF CARE TODAY. OTHERWISE, WE WILL FOLLOW UP WITH AM LABS AND CONTINUE TO MONITOR. - Past Medical Family Social History Past Med/Fam/Surg Hx: No changes since H&P Allergies: Allergies No Known Drug Allergies Allergy (Verified 12/08/19 08:59) - Review of Systems ROS: No change since H&P - Vital Signs and I&O's Vital Signs: Temperature 98.3 F Pulse Rate [Apical] 74 Pulse Rate 79 Respiratory Rate 32 Blood Pressure [Left Arm] 127/65 Blood Pressure 147/69 O2 Sat by Pulse Oximetry 94 Intake and Output: Intake & Output 12/08/19 12/09/19 12/10/19 12/11/19 11:59 11:59 11:59 11:59 Intake Total 2171 / 2171 3325 / 3325 3085 / 3085 Output Total 3150 / 3150 1950 / 1950 Balance 2171 / 2171 175 / 175 1135 / 1135 - Physical Exam Oriented: Normal Eyes: Normal Ear: Normal Nose: Normal Throat: Normal Respiratory: Diminished, Wheezes Cardiovascular: Normal : Normal Auscultation: Bowel Sounds: Normal Palpation: Normal Tenderness: Normal Skin: Normal Musculoskeletal: Normal Psychiatric: Normal Mood Description: Calm Affect: Normal Speech Pattern: Clear - Laboratory and Diagnostics Result Diagrams: 12/11/19 04:36 12/11/19 04:36 Labs: 12/08/19 09:50 Blood Blood Culture - Preliminary 12/08/19 09:24 Blood Blood Culture - Preliminary Laboratory WBC 11.2 X10^3/uL (3.6-10.0) H 12/11/19 04:36 RBC 4.25 X10^6/uL (3.5-5.4) 12/11/19 04:36 Hgb 12.3 g/dL (12.0-16.0) 12/11/19 04:36 Hct 36.6 % (36.0-47.0) 12/11/19 04:36 MCV 86.0 fL (80.0-100.0) 12/11/19 04:36 MCH 28.9 pg (27.0-34.0) 12/11/19 04:36 MCHC 33.6 g/dL (33.0-35.0) 12/11/19 04:36 RDW 12.7 % (11.6-16.5) 12/11/19 04:36 Plt Count 348 X10^3/uL (150.0-450.0) 12/11/19 04:36 MPV 8.2 fL (7.4-11.0) 12/11/19 04:36 Neut % (Auto) 84.9 % (42.0-75.0) H 12/11/19 04:36 Lymph % (Auto) 12.1 % (21.0-51.0) L 12/11/19 04:36 [place] % (Auto) 2.8 % (0.0-13.0) 12/11/19 04:36 Eos % (Auto) 0.0 % (0.9-2.9) L 12/11/19 04:36 Baso % (Auto) 0.2 % (0.2-1.0) 12/11/19 04:36 Neut # (Auto) 9.5 x10^3/uL (2.2-4.8) H 12/11/19 04:36 Lymph # (Auto) 1.4 X10^3/uL (1.3-2.9) 12/11/19 04:36 [place] # (Auto) 0.3 x10^3/uL (0.3-0.8) 12/11/19 04:36 Eos # (Auto) 0.0 x10^3/uL (0.0-0.2) 12/11/19 04:36 Baso # (Auto) 0.0 X10^3/uL (0.0-0.1) 12/11/19 04:36 Absolute Nucleated RBC 0.0 /100WBC 12/11/19 04:36 Sample Site Lbra 12/11/19 05:00 ABG pH 7.440 (7.35-7.45) 12/11/19 05:00 ABG pCO2 39.0 mmHg (35.0-45.0) 12/11/19 05:00 ABG pO2 59.0 mmHg (80.0-100.0) L 12/11/19 05:00 ABG HCO3 26.5 mmol/L (22-26) H 12/11/19 05:00 ABG O2 Saturation 91.0 % (90-100) 12/11/19 05:00 ABG Base Excess 2.2 mmol/L (-2.0-2.0) H 12/11/19 05:00 Mark Test Na 12/11/19 05:00 A-a Gradient 149.0 mmHg 12/11/19 05:00 FiO2 36.0 12/11/19 05:00 Blood Gas Comments Kirsty abg well-mtf 12/11/19 05:00 Sodium 138 mmol/L (136-145) 12/11/19 04:36 Corrected Sodium 143 mmol/L (136-145) 12/11/19 04:36 Potassium 3.9 mmol/L (3.5-5.1) 12/11/19 04:36 Chloride 104 mmol/L (98-107) 12/11/19 04:36 Carbon Dioxide 25.3 mmol/L (21-32) 12/11/19 04:36 BUN 14 mg/dL (7-18) 12/11/19 04:36 Creatinine 0.64 mg/dL (0.55-1.02) 12/11/19 04:36 Est GFR (MDRD) Af Amer > 60 (>60) 12/11/19 04:36 Est GFR (MDRD) Non-Af > 60 (>60) 12/11/19 04:36 Glucose 328 mg/dL (65-99) H 12/11/19 04:36 Hemoglobin A1c 12.6 % 12/08/19 09:24 Lactic Acid 1.3 mmol/L (0.4-2.0) 12/08/19 09:24 Calcium 8.8 mg/dL (8.5-10.1) 12/11/19 04:36 Corrected Calcium 9.9 mg/dL (8.5-10.1) 12/11/19 04:36 Magnesium 1.5 mg/dL (1.7-2.9) L 12/09/19 19:45 Ferritin 384 ng/mL (8-252) H 12/11/19 04:36 Total Bilirubin 0.20 mg/dL (0.2-1.0) 12/11/19 04:36 AST 15 Units/L (15-37) 12/11/19 04:36 ALT 38 Units/L (12-78) 12/11/19 04:36 Alkaline Phosphatase 93 Units/L (46-116) 12/11/19 04:36 Lactate Dehydrogenase 248 Units/L (81-234) H 12/08/19 09:24 Creatine Kinase 68 Units/L (26-192) 12/08/19 09:24 CK-MB (CK-2) < 1.0 ng/mL (0-4.0) 12/08/19 09:24 CK/CKMB % Calc 1.5 % (<4) 12/08/19 09:24 Troponin I < 0.02 ng/mL (0-1.5) 12/08/19 09:24 C-Reactive Protein 53.80 mg/L (0-3.0) H 12/11/19 04:36 Total Protein 6.7 g/dL (6.4-8.2) 12/11/19 04:36 Albumin 2.6 g/dL (3.4-5.0) L 12/11/19 04:36 Globulin 4.1 g/dL (2.5-4.5) 12/11/19 04:36 Albumin/Globulin Ratio 0.6 Ratio (1.1-2.1) L 12/11/19 04:36 Acetone, Semi-Quant Negative (NEGATIVE) 12/08/19 09:24 SARS-CoV-2 (PCR) Positive (NEGATIVE) A 12/08/19 11:15 - Plan (1) COVID-19 virus detected Status: Acute Plan: 1/2NS AT 75 ML/HR, REMDESIVIR 100MG IV DAILY, LEVAQUIN 750MG IV DAILY, DUONEBS Q6H, PULMICORT BID, ROBITUSSIN 10ML PO QID, TUSSIONEX 5ML PO Q12H PRN COUGH, SOLU-MEDROL 40MG IV Q8H, AND THE POTASSIUM AND MAGNESIUM PROTOCOLS. (2) Pneumonia Status: Acute Qualifiers: Pneumonia type: due to unspecified organism Laterality: bilateral Lung location: lower lobe of lung Qualified Code(s): J18.9 - Pneumonia, unspecified organism (3) Hypoxia Status: Acute (4) Generalized weakness Status: Acute (5) Diabetes Status: Chronic Qualifiers: Diabetes mellitus type: type 2 Diabetes mellitus senior living insulin use: without senior living use Diabetes mellitus complication status: without complication Qualified Code(s): E11.9 - Type 2 diabetes mellitus without complications
[2019-12-11] MEDS ORDERED: NS 1/2 1000 ML IV 1,000 ML IV ONE (18:23)
[2019-12-12] MEDS: DUONEB 0.5 MG/3 MG (3 mL) NEB SCH ×4 (00:45→18:30)
[2019-12-12] MEDS: NS 1/2 1000 ML IV 1,000 ML IV SCH ×3 (03:30→17:28)
[2019-12-12 05:26] LABS: BASOPHILS % (AUTO) 0.1 % (0.2-1.0); HEMATOCRIT 37.4 % (36.0-47.0); HEMOGLOBIN 12.4 g/dL (12.0-16.0); LYMPHOCYTES # (AUTO) 1.3 X10^3/uL (1.3-2.9); MEAN CORPUSCULAR HEMOGLOBIN 28.8 pg (27.0-34.0); MEAN CORPUSCULAR HGB CONC 33.1 g/dL (33.0-35.0); MEAN PLATELET VOLUME 8.7 fL (7.4-11.0); MONOCYTES # (AUTO) 0.5 x10^3/uL (0.3-0.8); MONOCYTES % (AUTO) 3.8 % (0.0-13.0); NEUTROPHILS # (AUTO) 10.8 x10^3/uL (2.2-4.8); NEUTROPHILS % (AUTO) 86.1 % (42.0-75.0); PLATELET COUNT 368 X10^3/uL (150.0-450.0); WHITE BLOOD COUNT 12.5 X10^3/uL (3.6-10.0)
[2019-12-12 05:35] LABS: ALANINE AMINOTRANSFERASE 31 Units/L (12-78); ALBUMIN 2.7 g/dL (3.4-5.0); ALKALINE PHOSPHATASE 111 Units/L (46-116); ASPARTATE AMINO TRANSFERASE 13 Units/L (15-37); BLOOD UREA NITROGEN 17 mg/dL (7-18); CALCIUM 8.7 mg/dL (8.5-10.1); CARBON DIOXIDE 24.5 mmol/L (21-32); CHLORIDE 103 mmol/L (98-107); COR CA(FOR HYPOALB) 9.7 mg/dL (8.5-10.1); COR NA(FOR HYPERGLY) 142 mmol/L (136-145); CREATININE 0.66 mg/dL (0.55-1.02); SODIUM 136 mmol/L (136-145); TOTAL PROTEIN 6.7 g/dL (6.4-8.2); eGFR NON BLACK RACES > 60 (>60)
[2019-12-12 05:45] LABS: BAND NEUTROPHILS % 2 % (0-10); PLATELET MORPHOLOGY COMMENT NORMAL (NORMAL)
[2019-12-12 05:45] LABS: ABG HCO3 25.5 mmol/L (22-26)
[2019-12-12] MEDS: SOLU-Medrol 40 MG VIAL IVP SCH ×3 (06:00→21:37)
[2019-12-12] MEDS: HumuLIN R SUBCUT PRN ×4 (06:07→21:39)
--- NOTE | 2019-12-12 06:12 | RAD ---
HISTORYSOBSTUDYCHEST x-ray, 1 VIEWCOMPARISONX-ray 12/11/2019FINDINGSPossible CHF. Vague bilateral infiltrates are suspected which could be atypical pneumonia or pulmonary edema. No pneumothorax or pleural effusion is seen.IMPRESSIONAppearance of the chest is similar to prior study.Electronically signed by: Ja Guzman (Dec 12, 2019 06:10:54)
[2019-12-12] MEDS: PULMICORT NEB TX 0.5 MG NEB SCH ×2 (08:45→21:00)
[2019-12-12] MEDS: LOVENOX INJ 40 MG SYR SC SCH (09:14)
[2019-12-12] MEDS: REMDESIVIR **DO NOT USE THIS ITEM# ** 100 MG in NS 250 ML IV 250 ML IV SCH (09:15)
[2019-12-12] MEDS: VSL#3 PO SCH (09:15)
[2019-12-12] MEDS: ROBITUSSIN DM PO SCH ×4 (09:15→21:37)
[2019-12-12] MEDS: LEVAQUIN PREMIX IV 750 MG 750 MG/150 ML BAG IV SCH (10:30)
[2019-12-12] MEDS ORDERED: NS 1/2 1000 ML IV 1,000 ML IV ONE (13:04)
[2019-12-13] MEDS: DUONEB 0.5 MG/3 MG (3 mL) NEB SCH ×4 (00:30→17:55)
[2019-12-13] MEDS: HumuLIN R SUBCUT PRN ×5 (00:31→22:08)
[2019-12-13] MEDS ORDERED: NS 1/2 1000 ML IV 1,000 ML IV ONE (03:10)
[2019-12-13] MEDS: NS 1/2 1000 ML IV 1,000 ML IV SCH ×3 (03:10→20:55)
[2019-12-13 05:04] LABS: ABG BASE EXCESS 3.7 mmol/L (-2.0-2.0); ABG HCO3 27.7 mmol/L (22-26)
[2019-12-13 05:06] LABS: ABG ALLEN TEST POS
[2019-12-13 05:26] LABS: BASOPHILS % (AUTO) 0.1 % (0.2-1.0); HEMATOCRIT 37.6 % (36.0-47.0); HEMOGLOBIN 12.4 g/dL (12.0-16.0); LYMPHOCYTES # (AUTO) 1.4 X10^3/uL (1.3-2.9); LYMPHOCYTES % (AUTO) 11.5 % (21.0-51.0); MEAN CORPUSCULAR HEMOGLOBIN 28.8 pg (27.0-34.0); MEAN CORPUSCULAR VOLUME 87.2 fL (80.0-100.0); MONOCYTES # (AUTO) 0.6 x10^3/uL (0.3-0.8); MONOCYTES % (AUTO) 4.8 % (0.0-13.0); NEUTROPHILS # (AUTO) 10.4 x10^3/uL (2.2-4.8); NEUTROPHILS % (AUTO) 83.6 % (42.0-75.0); PLATELET COUNT 374 X10^3/uL (150.0-450.0); RED BLOOD COUNT 4.31 X10^6/uL (3.5-5.4); RED CELL DISTRIBUTION WIDTH 12.9 % (11.6-16.5); WHITE BLOOD COUNT 12.5 X10^3/uL (3.6-10.0)
[2019-12-13 05:32] LABS: ALANINE AMINOTRANSFERASE 32 Units/L (12-78); ALBUMIN 2.7 g/dL (3.4-5.0); ALKALINE PHOSPHATASE 117 Units/L (46-116); ASPARTATE AMINO TRANSFERASE 14 Units/L (15-37); BLOOD UREA NITROGEN 14 mg/dL (7-18); CALCIUM 8.8 mg/dL (8.5-10.1); CARBON DIOXIDE 24.9 mmol/L (21-32); CHLORIDE 102 mmol/L (98-107); COR CA(FOR HYPOALB) 9.8 mg/dL (8.5-10.1); COR NA(FOR HYPERGLY) 142 mmol/L (136-145); CREATININE 0.59 mg/dL (0.55-1.02); SODIUM 136 mmol/L (136-145); TOTAL PROTEIN 6.4 g/dL (6.4-8.2); eGFR NON BLACK RACES > 60 (>60)
[2019-12-13] MEDS: SOLU-Medrol 40 MG VIAL IVP SCH (06:06)
[2019-12-13 06:07] LABS: PLATELET MORPHOLOGY COMMENT NORMAL (NORMAL)
--- NOTE | 2019-12-13 06:21 | RAD ---
HISTORYSOBSTUDYCHEST, 1 [id number]/23/2020FINDINGSTrachea is midline. Heart size is borderline enlarged, unchanged. Mild peribronchial thickening and ground-glass opacities noted within both lungs similar to prior examination. No pleural effusion or pneumothorax. No acute osseous abnormality.IMPRESSIONNo significant change from prior examination demonstrating findings suggesting multifocal bronchitis/pneumonia.Electronically signed by: ROGELIO BRAUN (Dec 13, 2019 06:20:01)
[2019-12-13] MEDS: TYLENOL 325 MG TAB PO PRN (06:25)
[2019-12-13] MEDS: K-DUR TAB 20 MEQ PO PRN (06:28)
[2019-12-13] MEDS: LOVENOX INJ 40 MG SYR SC SCH (08:46)
[2019-12-13] MEDS: LEVAQUIN PREMIX IV 750 MG 750 MG/150 ML BAG IV SCH (08:46)
[2019-12-13] MEDS: ROBITUSSIN DM PO SCH ×4 (08:47→20:55)
[2019-12-13] MEDS: VSL#3 PO SCH (08:47)
[2019-12-13] MEDS: PULMICORT NEB TX 0.5 MG NEB SCH ×2 (09:30→20:50)
--- NOTE | 2019-12-13 09:46 | PCM.PROG ---
Progress Note - Progress Note for Day of Date of Exam: 12/12/19 - Subjective Subjective: IS BEING TREATED FOR COVID-19, PNEUMONIA, HYPOXIA, GENERALIZED WEAKNESS, AND DIABETES. TODAY, SHE IS ALERT AND ORIENTED, LYING IN BED ON MORNING ROUNDS. SHE CONTINUES WITH COMPLAINTS OF COUGH, BODY ACHES, SORE THROAT, WEAKNESS, AND SHORTNESS OF BREATH TODAY, BUT REPORTS SLIGHT IMPROVEMENT IN SYMPTOMS TODAY. SHE REMAINS ON HEATED KHANG FLOW OXYGEN. ON EXAMINATION, HEART IS REGULAR IN RATE AND RHYTHM. BILATERAL LUNGS CONTINUE WITH SCATTERED WHEEZING THROUGHOUT. ABDOMEN IS ROUND, SOFT, AND NON-TENDER WITH NORMAL BOWEL SOUNDS NOTED IN ALL QUADRANTS. HER VITALS THIS MORNING ARE: 98. 0-91-31-91%HHF-141/67. LABS WERE OBTAINED. ABNORMAL LAB VALUES INCLUDE THE FOLLOWING: WBC 12.5, GLUCOSE 347, FERRITIN 381, AST 13, CRP 33.30, ALBUMIN 2.7. ABG REVEALED: PH 7.470, PC02 35.0, P02 66.0, HC03 25.5, 02 SATURATION 94.0, FI02 35.0. BLOOD CULTURES ARE PENDING. CHEST XRAY REVEALED: Possible CHF. Vague bilateral infiltrates are suspected which could be atypical pneumonia or pulmonary edema. No pneumothorax or pleural effusion is seen. SHE IS CURRENTLY RECEIVING 1/2NS AT 75 ML/HR, REMDESIVIR 100MG IV DAILY, LEVAQUIN 750MG IV DAILY, DUONEBS Q6H, PULMICORT BID, ROBITUSSIN 10ML PO QID, TUSSIONEX 5ML PO Q12H PRN COUGH, SOLU-MEDROL 40MG IV Q8H, AND THE POTASSIUM AND MAGNESIUM PROTOCOLS. WE WILL CONTINUE WITH CURRENT PLAN OF CARE TODAY. OTHERWISE, WE WILL FOLLOW UP WITH AM LABS AND CONTINUE TO MONITOR. - Past Medical Family Social History Past Med/Fam/Surg Hx: No changes since H&P Allergies: Allergies No Known Drug Allergies Allergy (Verified 12/08/19 08:59) - Review of Systems ROS: No change since H&P - Vital Signs and I&O's Vital Signs: Temperature 98.0 F Pulse Rate [Apical] 74 Pulse Rate 78 Respiratory Rate 29 Blood Pressure [Left Arm] 127/65 Blood Pressure 123/65 O2 Sat by Pulse Oximetry 92 Intake and Output: Intake & Output 12/10/19 12/11/19 12/12/19 12/13/19 11:59 11:59 11:59 11:59 Intake Total 3325 / 3325 3085 / 3085 3145 / 3145 1795 / 1795 Output Total 3150 / 3150 1950 / 1950 2850 / 2850 2400 / 2400 Balance 175 / 175 1135 / 1135 295 / 295 -605 / -605 - Physical Exam Oriented: Normal Eyes: Normal Ear: Normal Nose: Normal Throat: Normal Respiratory: Diminished, Wheezes Cardiovascular: Normal : Normal Auscultation: Bowel Sounds: Normal Tenderness: Normal Skin: Normal Musculoskeletal: Normal Psychiatric: Normal Mood Description: Calm Affect: Normal Speech Pattern: Clear - Laboratory and Diagnostics Result Diagrams: 12/13/19 04:26 12/13/19 04:26 Labs: 12/08/19 09:50 Blood Blood Culture - Preliminary 12/08/19 09:24 Blood Blood Culture - Preliminary Laboratory WBC 12.5 X10^3/uL (3.6-10.0) H 12/13/19 04:26 RBC 4.31 X10^6/uL (3.5-5.4) 12/13/19 04:26 Hgb 12.4 g/dL (12.0-16.0) 12/13/19 04:26 Hct 37.6 % (36.0-47.0) 12/13/19 04:26 MCV 87.2 fL (80.0-100.0) 12/13/19 04:26 MCH 28.8 pg (27.0-34.0) 12/13/19 04:26 MCHC 33.0 g/dL (33.0-35.0) 12/13/19 04:26 RDW 12.9 % (11.6-16.5) 12/13/19 04:26 Plt Count 374 X10^3/uL (150.0-450.0) 12/13/19 04:26 Plt Count Comment Adequate (ADEQUATE) 12/13/19 04:26 MPV 9.0 fL (7.4-11.0) 12/13/19 04:26 Neut % (Auto) 83.6 % (42.0-75.0) H 12/13/19 04:26 Lymph % (Auto) 11.5 % (21.0-51.0) L 12/13/19 04:26 [place] % (Auto) 4.8 % (0.0-13.0) 12/13/19 04:26 Eos % (Auto) 0.0 % (0.9-2.9) L 12/13/19 04:26 Baso % (Auto) 0.1 % (0.2-1.0) L 12/13/19 04:26 Neut # (Auto) 10.4 x10^3/uL (2.2-4.8) H 12/13/19 04:26 Lymph # (Auto) 1.4 X10^3/uL (1.3-2.9) 12/13/19 04:26 [place] # (Auto) 0.6 x10^3/uL (0.3-0.8) 12/13/19 04:26 Eos # (Auto) 0.0 x10^3/uL (0.0-0.2) 12/13/19 04:26 Baso # (Auto) 0.0 X10^3/uL (0.0-0.1) 12/13/19 04:26 Absolute Nucleated RBC 0.1 /100WBC 12/13/19 04:26 Total Counted 100 12/13/19 04:26 Neutrophils % (Manual) 81 % (39-76) H 12/13/19 04:26 Band Neutrophils % 2 % (0-10) 12/12/19 04:51 Lymphocytes % (Manual) 17 % (13-43) 12/13/19 04:26 Monocytes % (Manual) 2 % (4-9) L 12/13/19 04:26 Plt Morphology Comment Normal (NORMAL) 12/13/19 04:26 RBC Morphology Normal (NORMAL) 12/13/19 04:26 Sample Site Rr 12/13/19 05:00 ABG pH 7.460 (7.35-7.45) H 12/13/19 05:00 ABG pCO2 39.0 mmHg (35.0-45.0) 12/13/19 05:00 ABG pO2 50.0 mmHg (80.0-100.0) L 12/13/19 05:00 ABG HCO3 27.7 mmol/L (22-26) H 12/13/19 05:00 ABG O2 Saturation 87.0 % (90-100) L 12/13/19 05:00 ABG Base Excess 3.7 mmol/L (-2.0-2.0) H 12/13/19 05:00 Mark Test Pos 12/13/19 05:00 A-a Gradient 129.0 mmHg 12/13/19 05:00 FiO2 32.0 12/13/19 05:00 Blood Gas Comments Kirsty well ae 12/13/19 05:00 Sodium 136 mmol/L (136-145) 12/13/19 04:26 Corrected Sodium 142 mmol/L (136-145) 12/13/19 04:26 Potassium 3.6 mmol/L (3.5-5.1) 12/13/19 04:26 Chloride 102 mmol/L (98-107) 12/13/19 04:26 Carbon Dioxide 24.9 mmol/L (21-32) 12/13/19 04:26 BUN 14 mg/dL (7-18) 12/13/19 04:26 Creatinine 0.59 mg/dL (0.55-1.02) 12/13/19 04:26 Est GFR (MDRD) Af Amer > 60 (>60) 12/13/19 04:26 Est GFR (MDRD) Non-Af > 60 (>60) 12/13/19 04:26 Glucose 344 mg/dL (65-99) H 12/13/19 04:26 Hemoglobin A1c 12.6 % 12/08/19 09:24 Lactic Acid 1.3 mmol/L (0.4-2.0) 12/08/19 09:24 Calcium 8.8 mg/dL (8.5-10.1) 12/13/19 04:26 Corrected Calcium 9.8 mg/dL (8.5-10.1) 12/13/19 04:26 Magnesium 1.8 mg/dL (1.7-2.9) 12/13/19 04:26 Ferritin 353 ng/mL (8-252) H 12/13/19 04:26 Total Bilirubin 0.30 mg/dL (0.2-1.0) 12/13/19 04:26 AST 14 Units/L (15-37) L 12/13/19 04:26 ALT 32 Units/L (12-78) 12/13/19 04:26 Alkaline Phosphatase 117 Units/L (46-116) H 12/13/19 04:26 Lactate Dehydrogenase 248 Units/L (81-234) H 12/08/19 09:24 Creatine Kinase 68 Units/L (26-192) 12/08/19 09:24 CK-MB (CK-2) < 1.0 ng/mL (0-4.0) 12/08/19 09:24 CK/CKMB % Calc 1.5 % (<4) 12/08/19 09:24 Troponin I < 0.02 ng/mL (0-1.5) 12/08/19 09:24 C-Reactive Protein 20.20 mg/L (0-3.0) H 12/13/19 04:26 Total Protein 6.4 g/dL (6.4-8.2) 12/13/19 04:26 Albumin 2.7 g/dL (3.4-5.0) L 12/13/19 04:26 Globulin 3.7 g/dL (2.5-4.5) 12/13/19 04:26 Albumin/Globulin Ratio 0.7 Ratio (1.1-2.1) L 12/13/19 04:26 Acetone, Semi-Quant Negative (NEGATIVE) 12/08/19 09:24 SARS-CoV-2 (PCR) Positive (NEGATIVE) A 12/08/19 11:15 - Plan (1) COVID-19 virus detected Status: Acute Plan: 1/2NS AT 75 ML/HR, REMDESIVIR 100MG IV DAILY, LEVAQUIN 750MG IV DAILY, DUONEBS Q6H, PULMICORT BID, ROBITUSSIN 10ML PO QID, TUSSIONEX 5ML PO Q12H PRN COUGH, SOLU-MEDROL 40MG IV Q8H, AND THE POTASSIUM AND MAGNESIUM PROTOCOLS. (2) Pneumonia Status: Acute Qualifiers: Pneumonia type: due to unspecified organism Laterality: bilateral Lung location: lower lobe of lung Qualified Code(s): J18.9 - Pneumonia, unspecified organism (3) Hypoxia Status: Acute (4) Generalized weakness Status: Acute (5) Diabetes Status: Chronic Qualifiers: Diabetes mellitus type: type 2 Diabetes mellitus tank terminal gauger insulin use: without fci use Diabetes mellitus complication status: without complication Qualified Code(s): E11.9 - Type 2 diabetes mellitus without complications
--- NOTE | 2019-12-13 09:59 | PCM.PROG ---
Progress Note - Progress Note for Day of Date of Exam: 12/13/19 - Subjective Subjective: IS BEING TREATED FOR COVID-19, PNEUMONIA, HYPOXIA, GENERALIZED WEAKNESS, AND DIABETES. TODAY, SHE IS ALERT AND ORIENTED, LYING IN BED ON MORNING ROUNDS. SHE CONTINUES WITH COMPLAINTS OF COUGH, BODY ACHES, SORE THROAT, WEAKNESS, AND SHORTNESS OF BREATH SHE REPORTS THAT SHORTNESS OF BREATH IS SLIGHTLY WORSE TODAY. STAFF REPORTS THAT HER BLOOD GLUCOSE LEVELS HAVE BEEN ELEVATED, LIKELY RELATED TO THE STEROIDS. ON EXAMINATION, HEART IS REGULAR IN RATE AND RHYTHM. BILATERAL LUNGS CONTINUE WITH SCATTERED WHEEZING THROUGHOUT. ABDOMEN IS ROUND, SOFT, AND NON-TENDER WITH NORMAL BOWEL SOUNDS NOTED IN ALL QUADRANTS. HER VITALS THIS MORNING ARE: 98.0-78-29-92%NC-123/65. LABS WERE OBTAINED. ABNORMAL LAB VALUES INCLUDE THE FOLLOWING: WBC 12.5, GLUCOSE 344, FERRITIN 353, AST 14, ALK PHOS 117, CRP 20.20, ALBUMIN 2.7. ABG REVEALED: PH 7.470, PC02 35.0, P02 66.0, HC03 25.5, 02 SATURATION 94.0, FI02 35.0. BLOOD CULTURES ARE PENDING. CHEST XRAY REVEALED: No significant change from prior exa mination demonstrating findings suggesting multifocal bronchitis/pneumonia. SHE IS CURRENTLY RECEIVING 1/2NS AT 75 ML/HR, REMDESIVIR 100MG IV DAILY, LEVAQUIN 750MG IV DAILY, DUONEBS Q6H, PULMICORT BID, ROBITUSSIN 10ML PO QID, TUSSIONEX 5ML PO Q12H PRN COUGH, SOLU-MEDROL 40MG IV Q8H, AND THE POTASSIUM AND MAGNESIUM PROTOCOLS. TODAY, WE WILL DISCONTINUE HIS SOLU-MEDROL AND OBTAIN A CHEST CTA. OTHERWISE, WE WILL FOLLOW UP WITH AM LABS AND CONTINUE TO MONITOR. - Past Medical Family Social History Past Med/Fam/Surg Hx: No changes since H&P Allergies: Allergies No Known Drug Allergies Allergy (Verified 12/08/19 08:59) - Review of Systems ROS: No change since H&P - Vital Signs and I&O's Vital Signs: Temperature 98.0 F Pulse Rate [Apical] 74 Pulse Rate 78 Respiratory Rate 29 Blood Pressure [Left Arm] 127/65 Blood Pressure 123/65 O2 Sat by Pulse Oximetry 92 Intake and Output: Intake & Output 12/10/19 12/11/19 12/12/19 12/13/19 11:59 11:59 11:59 11:59 Intake Total 3325 / 3325 3085 / 3085 3145 / 3145 1795 / 1795 Output Total 3150 / 3150 1950 / 1950 2850 / 2850 2400 / 2400 Balance 175 / 175 1135 / 1135 295 / 295 -605 / -605 - Physical Exam Oriented: Normal Eyes: Normal Ear: Normal Nose: Normal Throat: Normal Respiratory: Diminished, Wheezes Cardiovascular: Normal : Normal Auscultation: Bowel Sounds: Normal Palpation: Normal Tenderness: Normal Skin: Normal Musculoskeletal: Normal Psychiatric: Normal Mood Description: Calm Affect: Normal Speech Pattern: Clear - Laboratory and Diagnostics Result Diagrams: 12/13/19 04:26 12/13/19 04:26 Labs: 12/08/19 09:50 Blood Blood Culture - Preliminary 12/08/19 09:24 Blood Blood Culture - Preliminary Laboratory WBC 12.5 X10^3/uL (3.6-10.0) H 12/13/19 04:26 RBC 4.31 X10^6/uL (3.5-5.4) 12/13/19 04:26 Hgb 12.4 g/dL (12.0-16.0) 12/13/19 04:26 Hct 37.6 % (36.0-47.0) 12/13/19 04:26 MCV 87.2 fL (80.0-100.0) 12/13/19 04:26 MCH 28.8 pg (27.0-34.0) 12/13/19 04:26 MCHC 33.0 g/dL (33.0-35.0) 12/13/19 04:26 RDW 12.9 % (11.6-16.5) 12/13/19 04:26 Plt Count 374 X10^3/uL (150.0-450.0) 12/13/19 04:26 Plt Count Comment Adequate (ADEQUATE) 12/13/19 04:26 MPV 9.0 fL (7.4-11.0) 12/13/19 04:26 Neut % (Auto) 83.6 % (42.0-75.0) H 12/13/19 04:26 Lymph % (Auto) 11.5 % (21.0-51.0) L 12/13/19 04:26 [place] % (Auto) 4.8 % (0.0-13.0) 12/13/19 04:26 Eos % (Auto) 0.0 % (0.9-2.9) L 12/13/19 04:26 Baso % (Auto) 0.1 % (0.2-1.0) L 12/13/19 04:26 Neut # (Auto) 10.4 x10^3/uL (2.2-4.8) H 12/13/19 04:26 Lymph # (Auto) 1.4 X10^3/uL (1.3-2.9) 12/13/19 04:26 [place] # (Auto) 0.6 x10^3/uL (0.3-0.8) 12/13/19 04:26 Eos # (Auto) 0.0 x10^3/uL (0.0-0.2) 12/13/19 04:26 Baso # (Auto) 0.0 X10^3/uL (0.0-0.1) 12/13/19 04:26 Absolute Nucleated RBC 0.1 /100WBC 12/13/19 04:26 Total Counted 100 12/13/19 04:26 Neutrophils % (Manual) 81 % (39-76) H 12/13/19 04:26 Band Neutrophils % 2 % (0-10) 12/12/19 04:51 Lymphocytes % (Manual) 17 % (13-43) 12/13/19 04:26 Monocytes % (Manual) 2 % (4-9) L 12/13/19 04:26 Plt Morphology Comment Normal (NORMAL) 12/13/19 04:26 RBC Morphology Normal (NORMAL) 12/13/19 04:26 Sample Site Rr 12/13/19 05:00 ABG pH 7.460 (7.35-7.45) H 12/13/19 05:00 ABG pCO2 39.0 mmHg (35.0-45.0) 12/13/19 05:00 ABG pO2 50.0 mmHg (80.0-100.0) L 12/13/19 05:00 ABG HCO3 27.7 mmol/L (22-26) H 12/13/19 05:00 ABG O2 Saturation 87.0 % (90-100) L 12/13/19 05:00 ABG Base Excess 3.7 mmol/L (-2.0-2.0) H 12/13/19 05:00 Mark Test Pos 12/13/19 05:00 A-a Gradient 129.0 mmHg 12/13/19 05:00 FiO2 32.0 12/13/19 05:00 Blood Gas Comments Kirsty well ae 12/13/19 05:00 Sodium 136 mmol/L (136-145) 12/13/19 04:26 Corrected Sodium 142 mmol/L (136-145) 12/13/19 04:26 Potassium 3.6 mmol/L (3.5-5.1) 12/13/19 04:26 Chloride 102 mmol/L (98-107) 12/13/19 04:26 Carbon Dioxide 24.9 mmol/L (21-32) 12/13/19 04:26 BUN 14 mg/dL (7-18) 12/13/19 04:26 Creatinine 0.59 mg/dL (0.55-1.02) 12/13/19 04:26 Est GFR (MDRD) Af Amer > 60 (>60) 12/13/19 04:26 Est GFR (MDRD) Non-Af > 60 (>60) 12/13/19 04:26 Glucose 344 mg/dL (65-99) H 12/13/19 04:26 Hemoglobin A1c 12.6 % 12/08/19 09:24 Lactic Acid 1.3 mmol/L (0.4-2.0) 12/08/19 09:24 Calcium 8.8 mg/dL (8.5-10.1) 12/13/19 04:26 Corrected Calcium 9.8 mg/dL (8.5-10.1) 12/13/19 04:26 Magnesium 1.8 mg/dL (1.7-2.9) 12/13/19 04:26 Ferritin 353 ng/mL (8-252) H 12/13/19 04:26 Total Bilirubin 0.30 mg/dL (0.2-1.0) 12/13/19 04:26 AST 14 Units/L (15-37) L 12/13/19 04:26 ALT 32 Units/L (12-78) 12/13/19 04:26 Alkaline Phosphatase 117 Units/L (46-116) H 12/13/19 04:26 Lactate Dehydrogenase 248 Units/L (81-234) H 12/08/19 09:24 Creatine Kinase 68 Units/L (26-192) 12/08/19 09:24 CK-MB (CK-2) < 1.0 ng/mL (0-4.0) 12/08/19 09:24 CK/CKMB % Calc 1.5 % (<4) 12/08/19 09:24 Troponin I < 0.02 ng/mL (0-1.5) 12/08/19 09:24 C-Reactive Protein 20.20 mg/L (0-3.0) H 12/13/19 04:26 Total Protein 6.4 g/dL (6.4-8.2) 12/13/19 04:26 Albumin 2.7 g/dL (3.4-5.0) L 12/13/19 04:26 Globulin 3.7 g/dL (2.5-4.5) 12/13/19 04:26 Albumin/Globulin Ratio 0.7 Ratio (1.1-2.1) L 12/13/19 04:26 Acetone, Semi-Quant Negative (NEGATIVE) 12/08/19 09:24 SARS-CoV-2 (PCR) Positive (NEGATIVE) A 12/08/19 11:15 - Plan (1) COVID-19 virus detected Status: Acute Plan: 1/2NS AT 75 ML/HR, REMDESIVIR 100MG IV DAILY, LEVAQUIN 750MG IV DAILY, DUONEBS Q6H, PULMICORT BID, ROBITUSSIN 10ML PO QID, TUSSIONEX 5ML PO Q12H PRN COUGH, AND THE POTASSIUM AND MAGNESIUM PROTOCOLS, OBTAIN CHEST CTA. (2) Pneumonia Status: Acute Qualifiers: Pneumonia type: due to unspecified organism Laterality: bilateral Lung location: lower lobe of lung Qualified Code(s): J18.9 - Pneumonia, unspecified organism (3) Hypoxia Status: Acute (4) Generalized weakness Status: Acute (5) Diabetes Status: Chronic Qualifiers: Diabetes mellitus type: type 2 Diabetes mellitus exterminator helper termite insulin use: without snf use Diabetes mellitus complication status: without complication Qualified Code(s): E11.9 - Type 2 diabetes mellitus without complications
[2019-12-13] MEDS: MAGNESIUM SULFATE 1 GRAM/100 mL PREMIX 1 GM/100 ML BAG IV PRN ×2 (10:06→12:58)
--- NOTE | 2019-12-13 12:21 | CT ---
HISTORY:Shortness of breath, COVID positiveStudy: CTA chestComparison:NoneTechnique: Multiple axial images of the chest were obtained after the administration of IV contrast. 3D reconstructions were performed utilizing radial maximum intensity projection imaging. Dose reduction techniques including Automated Exposure Control (AEC) and adjustment of mA and kV were utilized.Findings:Contrast opacification of the pulmonary arteries is adequate to the level of the segmental branches. No evidence of acute pulmonary emboli . Normal appearance of the heart and pericardium . The aorta appears normal in course and caliber. Multifocal ground-glass infiltrates are present throughout the lungs compatible with pneumonia. No pleural effusion or pneumothorax. Airways are patient.The soft tissues and osseous structures appear intact. Incidentally noted hepatic steatosis.IMPRESSION:1. Multifocal infiltrates throughout both lungs compatible with.2. No acute pulmonary embolism.Electronically signed by: SIMA BENTON (Dec 13, 2019 12:20:23)
[2019-12-13] MEDS: SNACK - Diabetic Appropriate PO SCH (20:54)
[2019-12-13] MEDS: LEVEMIR SC SCH (20:54)
[2019-12-14] MEDS ORDERED: NS 1/2 1000 ML IV 1,000 ML IV ONE ×2 (02:15→11:57)
[2019-12-14] MEDS: NS 1/2 1000 ML IV 1,000 ML IV SCH ×2 (02:50→12:05)
[2019-12-14] MEDS: DUONEB 0.5 MG/3 MG (3 mL) NEB SCH ×4 (03:06→16:50)
[2019-12-14 05:39] LABS: BASOPHILS % (AUTO) 0.2 % (0.2-1.0); EOSINOPHILS % (AUTO) 0.1 % (0.9-2.9); HEMOGLOBIN 12.9 g/dL (12.0-16.0); LYMPHOCYTES # (AUTO) 3.6 X10^3/uL (1.3-2.9); LYMPHOCYTES % (AUTO) 28.4 % (21.0-51.0); MEAN CORPUSCULAR HGB CONC 32.3 g/dL (33.0-35.0); MEAN CORPUSCULAR VOLUME 86.6 fL (80.0-100.0); MEAN PLATELET VOLUME 8.7 fL (7.4-11.0); MONOCYTES # (AUTO) 0.7 x10^3/uL (0.3-0.8); MONOCYTES % (AUTO) 5.2 % (0.0-13.0); NEUTROPHILS # (AUTO) 8.4 x10^3/uL (2.2-4.8); NEUTROPHILS % (AUTO) 66.1 % (42.0-75.0); PLATELET COUNT 404 X10^3/uL (150.0-450.0); RED BLOOD COUNT 4.62 X10^6/uL (3.5-5.4); RED CELL DISTRIBUTION WIDTH 12.8 % (11.6-16.5); WHITE BLOOD COUNT 12.7 X10^3/uL (3.6-10.0)
[2019-12-14 06:07] LABS: ABG BASE EXCESS 5.4 mmol/L (-2.0-2.0)
[2019-12-14 06:07] LABS: ALANINE AMINOTRANSFERASE 44 Units/L (12-78); ALBUMIN 2.8 g/dL (3.4-5.0); ALKALINE PHOSPHATASE 105 Units/L (46-116); ASPARTATE AMINO TRANSFERASE 64 Units/L (15-37); BLOOD UREA NITROGEN 16 mg/dL (7-18); CALCIUM 8.6 mg/dL (8.5-10.1); CARBON DIOXIDE 26.5 mmol/L (21-32); CHLORIDE 104 mmol/L (98-107); COR CA(FOR HYPOALB) 9.6 mg/dL (8.5-10.1); COR NA(FOR HYPERGLY) 141 mmol/L (136-145); SODIUM 140 mmol/L (136-145); TOTAL PROTEIN 6.1 g/dL (6.4-8.2); eGFR NON BLACK RACES > 60 (>60)
[2019-12-14 06:08] LABS: ABG ALLEN TEST POS
[2019-12-14 06:35] LABS: PLATELET MORPHOLOGY COMMENT NORMAL (NORMAL)
[2019-12-14] MEDS: PULMICORT NEB TX 0.5 MG NEB SCH ×2 (08:55→20:45)
--- NOTE | 2019-12-14 08:59 | RAD ---
HISTORYSOBSTUDYPortable AP [id number]/24/2020FINDINGSThe heart is not significantly enlarged. Expiratory technique is noted on the current study with low lung volumes. Nonspecific interstitial prominence is noted in the lung bases. No consolidation, pneumothorax or pleural fluid.IMPRESSIONMild nonspecific bibasal interstitial densities, little changed considering low lung volumes.Electronically signed by: HOSEA CHEATHAM (Dec 14, 2019 08:58:11)
[2019-12-14] MEDS: LEVAQUIN PREMIX IV 750 MG 750 MG/150 ML BAG IV SCH (09:39)
[2019-12-14] MEDS: LEVEMIR SC SCH ×2 (09:40→21:10)
[2019-12-14] MEDS: LOVENOX INJ 40 MG SYR SC SCH (09:41)
[2019-12-14] MEDS: ROBITUSSIN DM PO SCH ×4 (09:41→21:11)
[2019-12-14] MEDS: TYLENOL 325 MG TAB PO PRN ×2 (09:42→21:11)
[2019-12-14] MEDS: VSL#3 PO SCH (09:45)
[2019-12-14] MEDS: HumuLIN R SUBCUT PRN ×2 (12:35→17:16)
[2019-12-14] MEDS: SNACK - Diabetic Appropriate PO SCH (21:09)
[2019-12-15] MEDS: NS 1/2 1000 ML IV 1,000 ML IV SCH (01:32)
[2019-12-15] MEDS: DUONEB 0.5 MG/3 MG (3 mL) NEB SCH ×4 (05:09→16:55)
[2019-12-15 05:28] LABS: BASOPHILS % (AUTO) 0.3 % (0.2-1.0); EOSINOPHILS # (AUTO) 0.1 x10^3/uL (0.0-0.2); EOSINOPHILS % (AUTO) 0.9 % (0.9-2.9); HEMATOCRIT 41.6 % (36.0-47.0); HEMOGLOBIN 13.9 g/dL (12.0-16.0); LYMPHOCYTES # (AUTO) 2.7 X10^3/uL (1.3-2.9); LYMPHOCYTES % (AUTO) 33.8 % (21.0-51.0); MEAN CORPUSCULAR HGB CONC 33.4 g/dL (33.0-35.0); MEAN PLATELET VOLUME 8.3 fL (7.4-11.0); MONOCYTES # (AUTO) 0.5 x10^3/uL (0.3-0.8); MONOCYTES % (AUTO) 5.9 % (0.0-13.0); NEUTROPHILS # (AUTO) 4.7 x10^3/uL (2.2-4.8); NEUTROPHILS % (AUTO) 59.1 % (42.0-75.0); PLATELET COUNT 354 X10^3/uL (150.0-450.0); RED BLOOD COUNT 4.79 X10^6/uL (3.5-5.4); RED CELL DISTRIBUTION WIDTH 13.2 % (11.6-16.5)
[2019-12-15 05:45] LABS: ABG BASE EXCESS 7.6 mmol/L (-2.0-2.0)
[2019-12-15 05:46] LABS: ABG ALLEN TEST POS
[2019-12-15 05:49] LABS: ALANINE AMINOTRANSFERASE 92 Units/L (12-78); ALBUMIN 2.8 g/dL (3.4-5.0); ALKALINE PHOSPHATASE 88 Units/L (46-116); ASPARTATE AMINO TRANSFERASE 77 Units/L (15-37); BLOOD UREA NITROGEN 10 mg/dL (7-18); CALCIUM 8.7 mg/dL (8.5-10.1); CARBON DIOXIDE 29.4 mmol/L (21-32); CHLORIDE 106 mmol/L (98-107); COR CA(FOR HYPOALB) 9.7 mg/dL (8.5-10.1); CREATININE 0.61 mg/dL (0.55-1.02); SODIUM 143 mmol/L (136-145); eGFR NON BLACK RACES > 60 (>60)
[2019-12-15] MEDS: K-DUR TAB 20 MEQ PO PRN (06:12)
[2019-12-15] MEDS ORDERED: NS 1/2 1000 ML IV 1,000 ML IV ONE (06:19)
[2019-12-15 06:35] LABS: PLATELET MORPHOLOGY COMMENT NORMAL (NORMAL)
--- NOTE | 2019-12-15 07:54 | RAD ---
HISTORYSOB, COVIDSTUDYCHEST, 1 [id number]/25/2020FINDINGSThe trachea is midline. The cardiac silhouette is stable. Similar bibasilar airspace opacities.. The bony thorax is unremarkable.IMPRESSIONSimilar bibasilar opacities which may reflect atelectasis, edema, or pneumonia.Electronically signed by: CHU OCHOA (Dec 15, 2019 07:54:10)
[2019-12-15] MEDS: LOVENOX INJ 40 MG SYR SC SCH (08:30)
[2019-12-15] MEDS: LEVAQUIN PREMIX IV 750 MG 750 MG/150 ML BAG IV SCH (08:30)
[2019-12-15] MEDS: PULMICORT NEB TX 0.5 MG NEB SCH ×2 (09:20→21:50)
[2019-12-15] MEDS: LEVEMIR SC SCH ×2 (09:28→21:03)
[2019-12-15] MEDS: ROBITUSSIN DM PO SCH ×4 (09:31→21:42)
[2019-12-15] MEDS: VSL#3 PO SCH (09:38)
[2019-12-15] MEDS: HumuLIN R SUBCUT PRN ×3 (13:51→21:03)
[2019-12-15] MEDS: SNACK - Diabetic Appropriate PO SCH (21:02)
[2019-12-16] MEDS ORDERED: NS 1/2 1000 ML IV 1,000 ML IV ONE (00:11)
[2019-12-16] MEDS: TYLENOL 325 MG TAB PO PRN (00:27)
[2019-12-16] MEDS: DUONEB 0.5 MG/3 MG (3 mL) NEB SCH ×2 (00:45→06:05)
[2019-12-16 05:57] LABS: BASOPHILS % (AUTO) 0.2 % (0.2-1.0); EOSINOPHILS # (AUTO) 0.1 x10^3/uL (0.0-0.2); EOSINOPHILS % (AUTO) 1.8 % (0.9-2.9); HEMATOCRIT 41.5 % (36.0-47.0); HEMOGLOBIN 13.8 g/dL (12.0-16.0); LYMPHOCYTES # (AUTO) 2.3 X10^3/uL (1.3-2.9); LYMPHOCYTES % (AUTO) 31.5 % (21.0-51.0); MEAN CORPUSCULAR HEMOGLOBIN 29.3 pg (27.0-34.0); MEAN CORPUSCULAR HGB CONC 33.2 g/dL (33.0-35.0); MEAN CORPUSCULAR VOLUME 88.3 fL (80.0-100.0); MEAN PLATELET VOLUME 8.8 fL (7.4-11.0); MONOCYTES # (AUTO) 0.5 x10^3/uL (0.3-0.8); MONOCYTES % (AUTO) 7.1 % (0.0-13.0); NEUTROPHILS # (AUTO) 4.4 x10^3/uL (2.2-4.8); NEUTROPHILS % (AUTO) 59.4 % (42.0-75.0); PLATELET COUNT 322 X10^3/uL (150.0-450.0); RED BLOOD COUNT 4.71 X10^6/uL (3.5-5.4); RED CELL DISTRIBUTION WIDTH 13.4 % (11.6-16.5); WHITE BLOOD COUNT 7.4 X10^3/uL (3.6-10.0)
[2019-12-16 06:10] LABS: ABG ALLEN TEST POS; ABG HCO3 27.6 mmol/L (22-26)
[2019-12-16 06:19] LABS: ALANINE AMINOTRANSFERASE 89 Units/L (12-78); ALBUMIN 2.7 g/dL (3.4-5.0); ALKALINE PHOSPHATASE 83 Units/L (46-116); ASPARTATE AMINO TRANSFERASE 48 Units/L (15-37); BLOOD UREA NITROGEN 11 mg/dL (7-18); CARBON DIOXIDE 28.6 mmol/L (21-32); CHLORIDE 104 mmol/L (98-107); COR NA(FOR HYPERGLY) 141 mmol/L (136-145); CREATININE 0.64 mg/dL (0.55-1.02); SODIUM 139 mmol/L (136-145); TOTAL PROTEIN 5.8 g/dL (6.4-8.2); eGFR NON BLACK RACES > 60 (>60)
--- NOTE | 2019-12-16 06:52 | RAD ---
HISTORYShortness of breathSTUDYChest AP [id number]/26/2020FINDINGSThe heart is within normal limits in size. The deandre are normal. The lungs remain mildly hypoinflated but there is improved aeration bilaterally when compared with the prior examination. Bilateral parenchymal densities noted on the prior examination are no longer identified. No definite interstitial, ground-glass or alveolar infiltrates remain. No pleural effusions are identified.IMPRESSIONImproved aeration bilaterally compared with the prior examinationNo definite infiltrates on today's examinationElectronically signed by: CHU OCHOA (Dec 16, 2019 06:52:19)
--- NOTE | 2019-12-16 08:27 | PCM.PROG ---
Progress Note - Progress Note for Day of Date of Exam: 12/14/19 - Subjective Subjective: IS BEING TREATED FOR COVID-19, PNEUMONIA, HYPOXIA, GENERALIZED WEAKNESS, AND DIABETES. TODAY, SHE IS ALERT AND ORIENTED, LYING IN BED ON MORNING ROUNDS. SHE CONTINUES WITH COMPLAINTS OF COUGH, BODY ACHES, SORE THROAT, WEAKNESS, AND SHORTNESS OF BREATH, BUT REPORTS SLIGHT IMPROVEMENT SINCE YESTERDAY. ON EXAMINATION, HEART IS REGULAR IN RATE AND RHYTHM. BILATERAL LUNGS CONTINUE WITH SCATTERED WHEEZING THROUGHOUT. ABDOMEN IS ROUND, SOFT, AND NON- TENDER WITH NORMAL BOWEL SOUNDS NOTED IN ALL QUADRANTS. HER VITALS THIS MORNING ARE: 98.4-83-29-92%NC-125/81. LABS WERE OBTAINED. ABNORMAL LAB VALUES INCLUDE THE FOLLOWING: WBC 12.7, GLUCOSE 146, FERRITIN 392, AST 64, CRP 11.0, TOTAL PRO TEIN 6.1, ALBUMIN 2.8. ABG REVEALED: PH 460, P02 50.0, HC03 27.7, 02 SATURATION 87.0, BASE EXCESS 3.7. BLOOD CULTURES ARE PENDING. CHEST XRAY REVEALED: Mild nonspecific bibasal interstitial densities, little changed considering low lung volumes. SHE IS CURRENTLY RECEIVING 1/2NS AT 75 ML/HR, REMDESIVIR 100MG IV DAILY, LEVAQUIN 750MG IV DAILY, DUONEBS Q6H, PULMICORT BID, ROBITUSSIN 10ML PO QID, TUSSIONEX 5ML PO Q12H PRN COUGH, LEVEMIR 10 UNITS SC BID, HUMULIN R SLIDING SCALE, AND THE POTASSIUM AND MAGNESIUM PROTOCOLS. WE WILL CONTINUE WITH CURRENT PLAN OF CARE TODAY. OTHERWISE, WE WILL FOLLOW UP WITH AM LABS AND CONTINUE TO MONITOR. - Past Medical Family Social History Past Med/Fam/Surg Hx: No changes since H&P Allergies: Allergies No Known Drug Allergies Allergy (Verified 12/08/19 08:59) - Review of Systems ROS: No change since H&P - Vital Signs and I&O's Vital Signs: Temperature 98.2 F Pulse Rate [Apical] 74 Pulse Rate 55 Respiratory Rate 23 Blood Pressure [Left Arm] 127/65 Blood Pressure 88/52 O2 Sat by Pulse Oximetry 94 Intake and Output: Intake & Output 12/13/19 12/14/19 12/15/19 12/16/19 11:59 11:59 11:59 11:59 Intake Total 1795 / 1795 3375 / 5 3407 / 3407 2354 / 2354 Output Total 2400 / 2400 Balance -605 / -605 3375 / 3375 3407 / 3407 2354 / 2354 - Physical Exam Oriented: Normal Eyes: Normal Ear: Normal Nose: Normal Throat: Normal Respiratory: Diminished, Wheezes Cardiovascular: Normal : Normal Auscultation: Bowel Sounds: Normal Palpation: Normal Tenderness: Normal Skin: Normal Musculoskeletal: Normal Psychiatric: Normal Mood Description: Calm Affect: Normal Speech Pattern: Clear, Appropriate - Laboratory and Diagnostics Result Diagrams: 12/16/19 05:05 12/16/19 05:05 Labs: 12/08/19 09:50 Blood Blood Culture - Final 12/08/19 09:24 Blood Blood Culture - Final Laboratory WBC 7.4 X10^3/uL (3.6-10.0) 12/16/19 05:05 RBC 4.71 X10^6/uL (3.5-5.4) 12/16/19 05:05 Hgb 13.8 g/dL (12.0-16.0) 12/16/19 05:05 Hct 41.5 % (36.0-47.0) 12/16/19 05:05 MCV 88.3 fL (80.0-100.0) 12/16/19 05:05 MCH 29.3 pg (27.0-34.0) 12/16/19 05:05 MCHC 33.2 g/dL (33.0-35.0) 12/16/19 05:05 RDW 13.4 % (11.6-16.5) 12/16/19 05:05 Plt Count 322 X10^3/uL (150.0-450.0) 12/16/19 05:05 Plt Count Comment Adequate (ADEQUATE) 12/15/19 04:40 MPV 8.8 fL (7.4-11.0) 12/16/19 05:05 Neut % (Auto) 59.4 % (42.0-75.0) 12/16/19 05:05 Lymph % (Auto) 31.5 % (21.0-51.0) 12/16/19 05:05 [place] % (Auto) 7.1 % (0.0-13.0) 12/16/19 05:05 Eos % (Auto) 1.8 % (0.9-2.9) 12/16/19 05:05 Baso % (Auto) 0.2 % (0.2-1.0) 12/16/19 05:05 Neut # (Auto) 4.4 x10^3/uL (2.2-4.8) 12/16/19 05:05 Lymph # (Auto) 2.3 X10^3/uL (1.3-2.9) 12/16/19 05:05 [place] # (Auto) 0.5 x10^3/uL (0.3-0.8) 12/16/19 05:05 Eos # (Auto) 0.1 x10^3/uL (0.0-0.2) 12/16/19 05:05 Baso # (Auto) 0.0 X10^3/uL (0.0-0.1) 12/16/19 05:05 Absolute Nucleated RBC 0.1 /100WBC 12/16/19 05:05 Total Counted 100 12/15/19 04:40 Neutrophils % (Manual) 52 % (39-76) 12/15/19 04:40 Band Neutrophils % 2 % (0-10) 12/12/19 04:51 Lymphocytes % (Manual) 37 % (13-43) 12/15/19 04:40 Monocytes % (Manual) 11 % (4-9) H 12/15/19 04:40 Plt Morphology Comment Normal (NORMAL) 12/15/19 04:40 RBC Morphology Normal (NORMAL) 12/15/19 04:40 Sample Site Lrad 12/16/19 06:04 ABG pH 7.480 (7.35-7.45) H 12/16/19 06:04 ABG pCO2 37.0 mmHg (35.0-45.0) 12/16/19 06:04 ABG pO2 79.0 mmHg (80.0-100.0) L 12/16/19 06:04 ABG HCO3 27.6 mmol/L (22-26) H 12/16/19 06:04 ABG O2 Saturation 96.0 % (90-100) 12/16/19 06:04 ABG Base Excess 4.0 mmol/L (-2.0-2.0) H 12/16/19 06:04 Mark Test Pos 12/16/19 06:04 A-a Gradient 24.0 mmHg 12/16/19 06:04 FiO2 21.0 12/16/19 06:04 Blood Gas Comments Kirsty abg well-mtf 12/16/19 06:04 Sodium 139 mmol/L (136-145) 12/16/19 05:05 Corrected Sodium 141 mmol/L (136-145) 12/16/19 05:05 Potassium 4.0 mmol/L (3.5-5.1) 12/16/19 05:05 Chloride 104 mmol/L (98-107) 12/16/19 05:05 Carbon Dioxide 28.6 mmol/L (21-32) 12/16/19 05:05 BUN 11 mg/dL (7-18) 12/16/19 05:05 Creatinine 0.64 mg/dL (0.55-1.02) 12/16/19 05:05 Est GFR (MDRD) Af Amer > 60 (>60) 12/16/19 05:05 Est GFR (MDRD) Non-Af > 60 (>60) 12/16/19 05:05 Glucose 166 mg/dL (65-99) H 12/16/19 05:05 Hemoglobin A1c 12.6 % 12/08/19 09:24 Lactic Acid 1.3 mmol/L (0.4-2.0) 12/08/19 09:24 Calcium 9.0 mg/dL (8.5-10.1) 12/16/19 05:05 Corrected Calcium 10.0 mg/dL (8.5-10.1) 12/16/19 05:05 Magnesium 2.1 mg/dL (1.7-2.9) 12/14/19 04:25 Ferritin 421 ng/mL (8-252) H 12/16/19 05:05 Total Bilirubin 0.40 mg/dL (0.2-1.0) 12/16/19 05:05 AST 48 Units/L (15-37) H 12/16/19 05:05 ALT 89 Units/L (12-78) H 12/16/19 05:05 Alkaline Phosphatase 83 Units/L (46-116) 12/16/19 05:05 Lactate Dehydrogenase 248 Units/L (81-234) H 12/08/19 09:24 Creatine Kinase 68 Units/L (26-192) 12/08/19 09:24 CK-MB (CK-2) < 1.0 ng/mL (0-4.0) 12/08/19 09:24 CK/CKMB % Calc 1.5 % (<4) 12/08/19 09:24 Troponin I < 0.02 ng/mL (0-1.5) 12/08/19 09:24 C-Reactive Protein 1.80 mg/L (0-3.0) 12/16/19 05:05 Total Protein 5.8 g/dL (6.4-8.2) L 12/16/19 05:05 Albumin 2.7 g/dL (3.4-5.0) L 12/16/19 05:05 Globulin 3.1 g/dL (2.5-4.5) 12/16/19 05:05 Albumin/Globulin Ratio 0.9 Ratio (1.1-2.1) L 12/16/19 05:05 Acetone, Semi-Quant Negative (NEGATIVE) 12/08/19 09:24 SARS-CoV-2 (PCR) Positive (NEGATIVE) A 12/08/19 11:15 - Plan (1) COVID-19 virus detected Status: Acute Plan: 1/2NS AT 75 ML/HR, REMDESIVIR 100MG IV DAILY, LEVAQUIN 750MG IV DAILY, DUONEBS Q6H, PULMICORT BID, ROBITUSSIN 10ML PO QID, TUSSIONEX 5ML PO Q12H PRN COUGH, LEVEMIR 10UNITS SC BID, HUMULIN R SLIDING SCALE, AND THE POTASSIUM AND MAGNESIUM PROTOCOLS. (2) Pneumonia Status: Acute Qualifiers: Pneumonia type: due to unspecified organism Laterality: bilateral Lung location: lower lobe of lung Qualified Code(s): J18.9 - Pneumonia, unspecified organism (3) Hypoxia Status: Acute (4) Generalized weakness Status: Acute (5) Diabetes Status: Chronic Qualifiers: Diabetes mellitus type: type 2 Diabetes mellitus shoe stitcher odd insulin use: without shoe stitcher odd use Diabetes mellitus complication status: without complication Qualified Code(s): E11.9 - Type 2 diabetes mellitus without complications
[2019-12-16] MEDS: LEVAQUIN PREMIX IV 750 MG 750 MG/150 ML BAG IV SCH (08:38)
[2019-12-16] MEDS: LEVEMIR SC SCH (08:38)
[2019-12-16] MEDS: LOVENOX INJ 40 MG SYR SC SCH (08:39)
[2019-12-16] MEDS: VSL#3 PO SCH (08:40)
[2019-12-16] MEDS: ROBITUSSIN DM PO SCH (08:40)
--- NOTE | 2019-12-16 09:04 | PCM.PROG ---
Progress Note - Progress Note for Day of Date of Exam: 12/15/19 - Subjective Subjective: IS BEING TREATED FOR COVID-19, PNEUMONIA, HYPOXIA, GENERALIZED WEAKNESS, AND DIABETES. TODAY, SHE IS ALERT AND ORIENTED, LYING IN BED ON MORNING ROUNDS. SHE CONTINUES WITH COMPLAINTS OF COUGH AND WEAKNESS, BUT CONTINUES TO REPORT IMPROVEMENT IN SYMPTOMS. ON EXAMINATION, HEART IS REGULAR IN RATE AND RHYTHM. BILATERAL LUNGS CONTINUE WITH SCATTERED WHEEZING THROUGHOUT. ABDOMEN IS ROUND, SOFT, AND NON-TENDER WITH NORMAL BOWEL SOUNDS NOTED IN ALL QUADRANTS. HER VITALS THIS MORNING ARE: 98.8-63-23-91%-92/55. LABS WERE OBTAINED. ABNORMAL LAB VALUES INCLUDE THE FOLLOWING: POTASSIUM 3.4, FERRITIN 464, CRP 5.80, TOTAL PROTEIN 6.0, ALBUMIN 2.8. ABG REVEALED:PH 7.480, P02 70.0, HC03 32.0, BASE EXCESS 7.6, FI02 28.0. BLOOD CULTURES ARE PENDING. CHEST XRAY REVEALED: Similar bibasilar opacities which may reflect atelectasis, edema, or pneumonia. SHE IS CURRENTLY RECEIVING 1/2NS AT 75 ML/HR, REMDESIVIR 100MG IV DAILY, LEVAQUIN 750MG IV DAILY, DUONEBS Q6H, PULMICORT BID, ROBITUSSIN 10ML PO QID, TUSSIONEX 5ML PO Q12H PRN COUGH, LEVEMIR 10MG IV BID, HUMULIN R SLIDING SCALE, AND THE POTASSIUM AND MAGNESIUM PROTOCOLS. WE WILL CONTINUE WITH CURRENT PLAN OF CARE TODAY. OTHERWISE, WE WILL FOLLOW UP WITH AM LABS AND CONTINUE TO MONITOR. - Past Medical Family Social History Past Med/Fam/Surg Hx: No changes since H&P Allergies: Allergies No Known Drug Allergies Allergy (Verified 12/08/19 08:59) - Review of Systems ROS: No change since H&P - Vital Signs and I&O's Vital Signs: Temperature 97.6 F Pulse Rate [Apical] 74 Pulse Rate 64 Respiratory Rate 26 Blood Pressure [Left Arm] 127/65 Blood Pressure 105/72 O2 Sat by Pulse Oximetry 92 Intake and Output: Intake & Output 12/13/19 12/14/19 12/15/19 12/16/19 11:59 11:59 11:59 11:59 Intake Total 1795 / 1795 3375 / 3375 3407 / 3407 2354 / 2354 Output Total 2400 / 2400 Balance -605 / -605 3375 / 3375 3407 / 3407 2354 / 2354 - Physical Exam Oriented: Normal Eyes: Normal Ear: Normal Nose: Normal Throat: Normal Respiratory: Diminished, Wheezes Cardiovascular: Normal : Normal Auscultation: Bowel Sounds: Normal Tenderness: Normal Skin: Normal Musculoskeletal: Normal Psychiatric: Normal Mood Description: Calm Affect: Normal Speech Pattern: Clear, Appropriate - Laboratory and Diagnostics Result Diagrams: 12/16/19 05:05 12/16/19 05:05 Labs: 12/08/19 09:50 Blood Blood Culture - Final 12/08/19 09:24 Blood Blood Culture - Final Laboratory WBC 7.4 X10^3/uL (3.6-10.0) 12/16/19 05:05 RBC 4.71 X10^6/uL (3.5-5.4) 12/16/19 05:05 Hgb 13.8 g/dL (12.0-16.0) 12/16/19 05:05 Hct 41.5 % (36.0-47.0) 12/16/19 05:05 MCV 88.3 fL (80.0-100.0) 12/16/19 05:05 MCH 29.3 pg (27.0-34.0) 12/16/19 05:05 MCHC 33.2 g/dL (33.0-35.0) 12/16/19 05:05 RDW 13.4 % (11.6-16.5) 12/16/19 05:05 Plt Count 322 X10^3/uL (150.0-450.0) 12/16/19 05:05 Plt Count Comment Adequate (ADEQUATE) 12/15/19 04:40 MPV 8.8 fL (7.4-11.0) 12/16/19 05:05 Neut % (Auto) 59.4 % (42.0-75.0) 12/16/19 05:05 Lymph % (Auto) 31.5 % (21.0-51.0) 12/16/19 05:05 [place] % (Auto) 7.1 % (0.0-13.0) 12/16/19 05:05 Eos % (Auto) 1.8 % (0.9-2.9) 12/16/19 05:05 Baso % (Auto) 0.2 % (0.2-1.0) 12/16/19 05:05 Neut # (Auto) 4.4 x10^3/uL (2.2-4.8) 12/16/19 05:05 Lymph # (Auto) 2.3 X10^3/uL (1.3-2.9) 12/16/19 05:05 [place] # (Auto) 0.5 x10^3/uL (0.3-0.8) 12/16/19 05:05 Eos # (Auto) 0.1 x10^3/uL (0.0-0.2) 12/16/19 05:05 Baso # (Auto) 0.0 X10^3/uL (0.0-0.1) 12/16/19 05:05 Absolute Nucleated RBC 0.1 /100WBC 12/16/19 05:05 Total Counted 100 12/15/19 04:40 Neutrophils % (Manual) 52 % (39-76) 12/15/19 04:40 Band Neutrophils % 2 % (0-10) 12/12/19 04:51 Lymphocytes % (Manual) 37 % (13-43) 12/15/19 04:40 Monocytes % (Manual) 11 % (4-9) H 12/15/19 04:40 Plt Morphology Comment Normal (NORMAL) 12/15/19 04:40 RBC Morphology Normal (NORMAL) 12/15/19 04:40 Sample Site Lrad 12/16/19 06:04 ABG pH 7.480 (7.35-7.45) H 12/16/19 06:04 ABG pCO2 37.0 mmHg (35.0-45.0) 12/16/19 06:04 ABG pO2 79.0 mmHg (80.0-100.0) L 12/16/19 06:04 ABG HCO3 27.6 mmol/L (22-26) H 12/16/19 06:04 ABG O2 Saturation 96.0 % (90-100) 12/16/19 06:04 ABG Base Excess 4.0 mmol/L (-2.0-2.0) H 12/16/19 06:04 Mark Test Pos 12/16/19 06:04 A-a Gradient 24.0 mmHg 12/16/19 06:04 FiO2 21.0 12/16/19 06:04 Blood Gas Comments Kirsty abg well-mtf 12/16/19 06:04 Sodium 139 mmol/L (136-145) 12/16/19 05:05 Corrected Sodium 141 mmol/L (136-145) 12/16/19 05:05 Potassium 4.0 mmol/L (3.5-5.1) 12/16/19 05:05 Chloride 104 mmol/L (98-107) 12/16/19 05:05 Carbon Dioxide 28.6 mmol/L (21-32) 12/16/19 05:05 BUN 11 mg/dL (7-18) 12/16/19 05:05 Creatinine 0.64 mg/dL (0.55-1.02) 12/16/19 05:05 Est GFR (MDRD) Af Amer > 60 (>60) 12/16/19 05:05 Est GFR (MDRD) Non-Af > 60 (>60) 12/16/19 05:05 Glucose 166 mg/dL (65-99) H 12/16/19 05:05 Hemoglobin A1c 12.6 % 12/08/19 09:24 Lactic Acid 1.3 mmol/L (0.4-2.0) 12/08/19 09:24 Calcium 9.0 mg/dL (8.5-10.1) 12/16/19 05:05 Corrected Calcium 10.0 mg/dL (8.5-10.1) 12/16/19 05:05 Magnesium 2.1 mg/dL (1.7-2.9) 12/14/19 04:25 Ferritin 421 ng/mL (8-252) H 12/16/19 05:05 Total Bilirubin 0.40 mg/dL (0.2-1.0) 12/16/19 05:05 AST 48 Units/L (15-37) H 12/16/19 05:05 ALT 89 Units/L (12-78) H 12/16/19 05:05 Alkaline Phosphatase 83 Units/L (46-116) 12/16/19 05:05 Lactate Dehydrogenase 248 Units/L (81-234) H 12/08/19 09:24 Creatine Kinase 68 Units/L (26-192) 12/08/19 09:24 CK-MB (CK-2) < 1.0 ng/mL (0-4.0) 12/08/19 09:24 CK/CKMB % Calc 1.5 % (<4) 12/08/19 09:24 Troponin I < 0.02 ng/mL (0-1.5) 12/08/19 09:24 C-Reactive Protein 1.80 mg/L (0-3.0) 12/16/19 05:05 Total Protein 5.8 g/dL (6.4-8.2) L 12/16/19 05:05 Albumin 2.7 g/dL (3.4-5.0) L 12/16/19 05:05 Globulin 3.1 g/dL (2.5-4.5) 12/16/19 05:05 Albumin/Globulin Ratio 0.9 Ratio (1.1-2.1) L 12/16/19 05:05 Acetone, Semi-Quant Negative (NEGATIVE) 12/08/19 09:24 SARS-CoV-2 (PCR) Positive (NEGATIVE) A 12/08/19 11:15 - Plan (1) COVID-19 virus detected Status: Acute Plan: 1/2NS AT 75 ML/HR, REMDESIVIR 100MG IV DAILY, LEVAQUIN 750MG IV DAILY, DUONEBS Q6H, PULMICORT BID, ROBITUSSIN 10ML PO QID, TUSSIONEX 5ML PO Q12H PRN COUGH, LEVEMIR 10UNITS SC BID, HUMULIN R SLIDING SCALE, AND THE POTASSIUM AND MAGNESIUM PROTOCOLS. (2) Pneumonia Status: Acute Qualifiers: Pneumonia type: due to unspecified organism Laterality: bilateral Lung location: lower lobe of lung Qualified Code(s): J18.9 - Pneumonia, unspecified organism (3) Hypoxia Status: Acute (4) Generalized weakness Status: Acute (5) Diabetes Status: Chronic Qualifiers: Diabetes mellitus type: type 2 Diabetes mellitus mcfp insulin use: without exterminator use Diabetes mellitus complication status: without complication Qualified Code(s): E11.9 - Type 2 diabetes mellitus without complications
[2019-12-16] MEDS: PULMICORT NEB TX 0.5 MG NEB SCH (09:20)
[2019-12-16 12:44] VITALS: BP 121/60
== END 2019-12-16 12:30 | disposition home or self-care (01) | DRG 177 ==
LOC: ER 08:58 → ICU 12:31
PROVIDERS: ADMIT Internal Medicine; ATTEND Internal Medicine
DX: U07.1 COVID-19; R53.1 Weakness; R26.89 Other abnormalities of gait and mobility; E11.65 Type 2 diabetes mellitus with hyperglycemia; J12.89 Other viral pneumonia